=== PATIENT | female | born 2000 | race African-American/Black ===

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

== ENCOUNTER 2019-04-22 11:02 | Emergency (ER) | payer OTHER ==
[2019-04-22 11:18] VITALS: BP 127/73; PULSE 86; TEMP 98.6; BMI 27.4
--- NOTE | 2019-04-22 12:06 | PDOC ---
History of Present Illness - General Chief Complaint: Vaginal Bleeding Stated Complaint: SONOGRAM Time Seen by Provider: 04/22/19 11:33 History Source: Patient Exam Limitations: No Limitations Past History - Past Medical History Allergies/Adverse Reactions: Allergies Allergy/AdvReac Type Severity Reaction Status Date / Time No Known Allergies Allergy Verified 10/27/18 12:41 Home Medications: Ambulatory Orders NK [No Known Home Medication] 04/22/19 COPD: No DVT: No - Surgical History Cholecystectomy: No Neurologic Surgery: No - Reproductive History Is Patient Now?: Yes - Immunization History Immunization Up to Date: Yes - Psycho Social/Smoking Cessation Hx Smoking History: Never smoked Have you smoked in the past 12 months: No Number of Cigarettes Smoked Daily: 0 Cigars Per Day: 0 Hx Alcohol Use: No Drug/Substance Use Hx: No Substance Use Type: None *Physical Exam - Vital Signs Last Vital Signs Temp Pulse Resp BP Pulse Ox 98.6 F 86 16 127/73 100 04/22/19 11:12 04/22/19 11:12 04/22/19 11:12 04/22/19 11:12 04/22/19 11:12 - Physical Exam General Appearance: No: Apparent Distress Respiratory/Chest: positive: Lungs Clear, Normal Breath Sounds. negative: Respiratory Distress Cardiovascular: positive: Regular Rhythm, Regular Rate, S1, S2. negative: Murmur Gastrointestinal/Abdominal: positive: Normal Bowel Sounds, Soft. negative: Tender, Distended, Guarding, Rebound Neurologic: positive: Alert ED Treatment Course - LABORATORY CBC & Chemistry Diagram: 04/22/19 12:05 04/22/19 12:05 - RADIOLOGY Radiology Studies Ordered: Category Date Time Status <14WKS US [US] Stat Ultrasound 04/22/19 11:47 Ordered Medical Decision Making - Medical Decision Making 19-year-old female history of depression, LNMP 03/05, , presents as patient found out she was yesterday and noted to have light bleeding from yesterday. Mentions she also had some brown spotting for 3 days. Went to an OB clinic today and was told that she needed immediate ultrasound but states ultrasound could not be done until 2:45 PM and she did not wait that long so she came to the ER. Denies fever, URI symptoms, shortness of breath, chest pain, abdominal/pelvic pain, nausea vomiting, urinary symptoms. R/O ectopic ; could be miscarriage Plan: Labs, pelvic US 04/22/19 12:04 beta hcg is 796 pelvic US does not show IUP; both ovaries appear unremarkable This could be early or possible miscarriage Advised patient to return in 2 days for repeat blood test 04/22/19 15:46 Discharge - Discharge Information Problems reviewed: Yes Clinical Impression/Diagnosis: Vaginal bleeding during Condition: Stable Disposition: HOME - Admission No - Follow up/Referral Referrals: Nancie Sanchez MD [Primary Care Provider] - - Patient Discharge Instructions Patient Printed Discharge Instructions: DI for Vaginal Bleeding During Additional Instructions: Thank you for choosing [facility]. It was a pleasure taking care of you. Please return in 2 days to the ED for repeat blood test Recommend pelvic rest (including no intercourse) Return to the Emergency Department if your symptoms worsen or persist or have other concerning symptoms. - Post Discharge Activity
[2019-04-22 12:37] LABS: BASO % 0.2 % (0-2.0); EOS % 0.3 % (0-4.5); HEMATOCRIT 40.4 % (32.4-45.2); HEMOGLOBIN 13.7 GM/dL (10.7-15.3); LYMPH % 20.2 % (8-40); MCH 31.4 pg (25.7-33.7); MCHC 33.9 g/dl (32.0-36.0); MEAN CELL VOLUME 92.7 fl (80-96); MEAN PLT VOLUME 9.3 fl (7.5-11.1); MONO % 6.9 % (3.8-10.2); NEUT % 72.4 % (42.8-82.8); PLATELET COUNT 209 K/MM3 (134-434); RBC 4.36 M/mm3 (3.60-5.2); RDW 12.9 % (11.6-15.6); WHITE BLOOD COUNT 8.4 K/mm3 (4.0-10.0)
[2019-04-22 13:04] LABS: BLOOD UREA NITROGEN 8.2 mg/dL (7-18); CALCIUM 8.8 mg/dL (8.5-10.1); CREATININE 0.7 mg/dL (0.55-1.3); POTASSIUM 3.7 mmol/L (3.5-5.1)
[2019-04-22 13:33] LABS: EPI CELLS 3.5 /HPF (0-5/HPF); HYALINE CASTS 10 /lpf (0-8); PH,URINE 5.5 (5.0-8.0); URINE APPEARANCE CLEAR; URINE BACTERIA 39.4 /hpf (NEGATIVE); URINE BILIRUBIN NEGATIVE (NEGATIVE); URINE COLOR YELLOW; URINE GLUCOSE (UA) NEGATIVE (NEGATIVE); URINE KETONE 3+ (NEGATIVE); URINE LEUK ESTERASE NEGATIVE (NEGATIVE); URINE NITRITE NEGATIVE (NEGATIVE); URINE PROTEIN TRACE (NEGATIVE); URINE RBC 3 /hpf (0-4); URINE WBC 3 /hpf (0-5)
== END 2019-04-22 15:58 | disposition home or self-care (01) ==
LOC: JERFT 11:02
DX: O26.891 Other specified pregnancy related conditions, first trimester (principal); Z3A.01 Less than 8 weeks gestation of pregnancy; N93.9 Abnormal uterine and vaginal bleeding, unspecified; F32.9 Major depressive disorder, single episode, unspecified
CPT/HCPCS: 36415; 76817-TC; 80048; 81003; 84702; 85025; 86850; 86900; 86901; 87086; 99284-25

== ENCOUNTER 2019-04-22 20:24 | Emergency (ER) | payer OTHER ==
[2019-04-22 20:35] VITALS: TEMP 97.8; BMI 27.4
[2019-04-22] MEDS ORDERED: MAG HYDROX/AL HYDROX/SIMETH -MYLANTA- ORAL SUSPENSION PO ONE (20:57)
[2019-04-22] MEDS ORDERED: SIMETHICONE 40 MG/0.6 ML BOTTLE PO ONE (20:57)
--- NOTE | 2019-04-22 21:04 | PDOC ---
History of Present Illness - General Chief Complaint: Vaginal Bleeding Stated Complaint: 1 MONTH PREG/BLEEDING Time Seen by Provider: 04/22/19 20:36 - History of Present Illness Initial Comments: The pt is a 19F at approximately 4 wks by LMP who presents for evaluation of abdominal bloating/gas. She reports abdominal 'bubbling' that is mostly suprapubic, intermittent, and not exacerbated or alleviated by anything she can identify. She denies fevers/chills, chest pain, trouble breathing, dysuria, diarrhea, blood in her stool, or changes in sensation. Pt was seen earlier today for vaginal spotting by OBGYN and here. Her TVUS did not show an IUP and her beta-hCG was 700s. She is to return on Thursday for repeat beta, which she states she will do. She has not tried taking anything for her symptoms. She had these symptoms earlier today but did not express them to the providers at that time. Pt reports recent increase in fiber intake but otherwise no changes in diet. Pt is not taking vitamins. 04/22/19 20:57 Past History - Past Medical History Allergies/Adverse Reactions: Allergies Allergy/AdvReac Type Severity Reaction Status Date / Time No Known Allergies Allergy Verified 10/27/18 12:41 Home Medications: Ambulatory Orders Mag Hydrox/Aluminum Hyd/Simeth [Maalox Advanced Suspension] 355 ml PO Q6H PRN #1 bottle 04/22/19 Vit No.138/Folic/Dha [Alive Gummy] 1 each PO DAILY #30 tab.chew 04/22/19 Simethicone Liquid [Mylicon Liquid -] 40 mg PO QID #150 ml 04/22/19 COPD: No DVT: No - Surgical History Cholecystectomy: No Neurologic Surgery: No - Immunization History Immunization Up to Date: Yes - Psycho Social/Smoking Cessation Hx Smoking History: Never smoked Have you smoked in the past 12 months: No Number of Cigarettes Smoked Daily: 0 Cigars Per Day: 0 Hx Alcohol Use: No Drug/Substance Use Hx: No Substance Use Type: None Review of Systems - Review of Systems Able to Perform ROS?: Yes Comments:: GENERAL/CONSTITUTIONAL: No fever or chills. No weakness HEAD, EYES, EARS, NOSE AND THROAT: No change in vision. No change in hearing. No sore throat CARDIOVASCULAR: No chest pain or shortness of breath RESPIRATORY: Denies cough, hemoptysis GASTROINTESTINAL: No nausea, vomiting, diarrhea or constipation GENITOURINARY: No dysuria, frequency, or change in urination MUSCULOSKELETAL: No joint or muscle swelling or pain. No neck or back pain SKIN: No rash NEUROLOGIC: No headache, vertigo, loss of consciousness, or change in strength/sensation ENDOCRINE: No increased thirst. No abnormal weight change HEMATOLOGIC/LYMPHATIC: No anemia, easy bleeding, or history of blood clots ALLERGIC/IMMUNOLOGIC: No hives or skin allergy 04/22/19 21:02 Is the patient limited Slovak proficient: No *Physical Exam - Vital Signs Last Vital Signs Temp Pulse Resp BP Pulse Ox 97.8 F 90 18 127/82 99 04/22/19 20:29 04/22/19 20:29 04/22/19 20:29 04/22/19 20:29 04/22/19 20:29 - Physical Exam GENERAL: Awake, alert, and oriented to person/place/time, in no acute distress HEAD: No signs of trauma, normocephalic, atraumatic EYES: PERRLA, EOMI, sclera anicteric, conjunctiva clear ENT: Hearing grossly normal, nares patent, oropharynx clear without exudates. Moist mucosa LUNGS: No distress, speaks in full sentences, clear to auscultation bilaterally HEART: Regular rate and rhythm, normal S1 and S2, no murmurs appreciated, peripheral pulses normal and equal bilaterally ABDOMEN: Soft, protuberant, NTTP, no rebound/guarding, hyperactive bowel sounds EXTREMITIES: Normal inspection, Normal range of motion, no edema. No clubbing or cyanosis NEUROLOGICAL: Cranial nerves II through XII grossly intact. Normal speech, normal gait, no focal sensorimotor deficits SKIN: Warm, Dry 04/22/19 21:04 Medical Decision Making - Medical Decision Making The pt is a 19F at approximately 4 wks by LMP who presents for evaluation of abdominal bloating/gas. ED Course Zantac, Simethicone, Maalox Rx for prenatals, simethicone, and zantac Plan for D/C w/ obgyn f/u Pt to return Thursday for repeat beta Discharge instructions and return precautions given Patient in agreement and verbalized understanding Dispo: Home 04/22/19 21:09 Discharge - Discharge Information Problems reviewed: Yes Clinical Impression/Diagnosis: Abdominal bloating Condition: Stable Disposition: HOME - Admission No - Additional Discharge Information Prescriptions: Vit No.138/Folic/Dha [Alive Gummy] 1 each PO DAILY #30 tab.chew Mag Hydrox/Aluminum Hyd/Simeth [Maalox Advanced Suspension] 355 ml PO Q6H PRN #1 bottle PRN Reason: Gas Simethicone Liquid [Mylicon Liquid -] 40 mg PO QID #150 ml - Follow up/Referral Referrals: Nancie Sanchez MD [Primary Care Provider] - - Patient Discharge Instructions Patient Printed Discharge Instructions: Gassy Foods Diet, Diet Additional Instructions: You were seen in the Emergency Department for evaluation of abdominal bloating. You were treated with Zantac, Simethicone, and Maalox. Review the handouts provided at discharge. Follow up here Thursday for repeat beta-hCG. Follow up with your OBGYN. Return to the Emergency Department if you develop worsening vaginal bleeding, passage of clots, severe abdominal pain, pain with urination, blood in your stool, vomiting, fevers, chest pain, trouble breathing, worsening symptoms, or any new/concerning symptoms. - Post Discharge Activity Work/Back to School Note: Back to Work
[2019-04-22] MEDS ORDERED: TIZANIDINE HCL 4 MG TABLET PO ONE (21:05)
--- NOTE | 2019-04-22 21:18 | PDOC ---
Attending Attestation - Resident Resident Name: Andrew Perkins - ED Attending Attestation I have performed the following: I have examined & evaluated the patient, The case was reviewed & discussed with the resident, I agree w/resident's findings & plan - HPI HPI: 04/22/19 21:16 19-year-old female history of depression, LNMP 03/05, , lactose intolerance presents as patient found out she was yesterday and came to the ED today for vaginal spotting. presenting today with lower abdominal "gas." she admits to eating Trix cereal with soy milk. no n/v/d, f/c, cp or sob, ann, dizziness, urinary sx. Went to an OB clinic today and had sono done, which showed normal ovaries, no definitive IUP with beta hcg checked this afternoon at 796. she was instructed this could be early or possible miscarriage and should f/u in 2 days for beta check 04/22/19 21:20 - Physicial Exam PE: 04/22/19 21:13 Agree with the resident's HPI and PE as documented in the electronic medical record. NAD, well appearing, EOMI, PERRL, nl conjunctiva, anicteric; neck supple. lungs clear, RRR, abdomen soft nontender. no rebound, guarding. Back nontender. CRUZ x4, no focal neuro deficits. No peripheral edema. normal color for ethnicity, WWP. - Medical Decision Making 04/22/19 21:14 Vital Signs Temp Pulse Resp BP Pulse Ox 97.8 F 90 18 127/82 99 04/22/19 20:29 04/22/19 20:29 04/22/19 20:29 04/22/19 20:29 04/22/19 20:29 Went to an OB clinic today and had sono done, which showed normal ovaries, no definitive IUP with beta hcg checked this afternoon at 796. she was instructed this could be early or possible miscarriage and should f/u in 2 days for beta check abdomen soft and nontender VS reviewed, wnl, reassuring asymptomatic now no VB here, pelvic exam deferred. as pt had full evaluation including labs/txs and sono earlier no rhogam indicated, as rh positive no additional lab testing indicated at this time as <12 hours from previous visit. will give maalox/simethicone, zantac, reassess rx vitamins, diet, tylenol prn for pain. beta hcg check in 2 days, bleeding precautions. Pt to be discharged in stable condition. Patient and family made aware of clinical impression, treatment recommendations and disposition plan, return precautions discussed (including but not limited to new or persistent/worsening symptoms, pain, fevers, or signs of infection, chest pain, respiratory distress, inability to tolerate oral intake, dehydration, syncope, or neurologic changes). Follow up with PMD and/or OB as recommended, follow up information provided, take medications as instructed for duration of time. continue with supportive care, avoid triggers and precipitants. All questions answered to patient's satisfaction and expressed understanding and comfort with this. At the time of discharge, the patient is alert, clinically improved, tolerating po and verbalizes understanding of instructions, satisfied with the care received and felt comfortable with the plan. Patient does not suffer from an acute life- threatening medical condition at this time and is safe for outpatient follow- up. 04/22/19 21:18 04/22/19 21:21 04/22/19 21:22
[2019-04-22] MEDS ORDERED: MAG HYDROX/AL HYDROX/SIMETH 30 ML UNIT-DOSE CUP ONE (21:36)
[2019-04-22 21:45] VITALS: BP 122/75; PULSE 86
== END 2019-04-22 21:43 | disposition home or self-care (01) ==
LOC: JER 20:24
DX: R14.0 Abdominal distension (gaseous) (principal)
CPT/HCPCS: 99283-25

== ENCOUNTER 2019-04-24 22:05 | Emergency (ER) | payer OTHER ==
[2019-04-24 22:08] VITALS: BP 115/78; PULSE 80; TEMP 98.1; BMI 27.4
--- NOTE | 2019-04-24 23:51 | PDOC ---
History of Present Illness - General Chief Complaint: Revisit, Lab Variance Stated Complaint: FOLLOW UP Time Seen by Provider: 04/24/19 23:32 History Source: Patient Exam Limitations: No Limitations - History of Present Illness Initial Comments: 04/24/19 23:46 Patient is a 19-year-old female with no past medical history was here yesterday for vaginal bleeding secondary to threatened . She was seen by AD OPERATIONS SPECIALIST earlier in the day yesterday. She had an ultrasound with did not show an IUP. Beta was 700 on 04/22/2019. She is here today for repeat beta hCG. She notes that her bleeding has slowed. Denies any abdominal pain currently. OBS AD OPERATIONS SPECIALIST: Dr. Farah PMHX: as above PSOCHX: neg etoh, drug, cig ALL: NKDA GENERAL/CONSTITUTIONAL: [No fever or chills. No weakness. No weight change.] HEAD, EYES, EARS, NOSE AND THROAT: [No change in vision. No ear pain or discharge. No sore throat.] CARDIOVASCULAR: [No chest pain or shortness of breath.] RESPIRATORY: [No cough, wheezing, or hemoptysis.] GASTROINTESTINAL: [No nausea, vomiting, diarrhea or constipation. No rectal bleeding.] GENITOURINARY: [No dysuria, frequency, or change in urination.] NEUROLOGIC: [No headache, vertigo, loss of consciousness, or loss of sensation.] HEMATOLOGIC/LYMPHATIC: [No anemia, easy bleeding, or history of blood clots.] GENERAL: [The patient is awake, alert, and fully oriented, in no acute distress.] EYES: [Pupils equal, round and reactive to light, extraocular movements intact, sclera anicteric, conjunctiva clear.] ENT: [Ears normal, Moist mucous membranes.] NECK: [Normal range of motion, no JVD, or masses.] LUNGS: [Breath sounds equal, clear to auscultation bilaterally. No wheezes, and no crackles.] HEART: [Regular rate and rhythm, normal S1 and S2 without murmur, rub.] ABDOMEN: [Soft, nontender, normoactive bowel sounds. No guarding, no rebound. No masses.] EXTREMITIES: [Normal range of motion, no edema. No clubbing or cyanosis. No cords, erythema, or tenderness.] NEUROLOGICAL: [Cranial nerves II through XII grossly intact. Normal speech, normal gait.] SKIN: [Warm, Dry, normal turgor, no rashes or lesions noted.] Past History - Past Medical History Allergies/Adverse Reactions: Allergies Allergy/AdvReac Type Severity Reaction Status Date / Time No Known Allergies Allergy Verified 04/24/19 22:08 Home Medications: Ambulatory Orders Mag Hydrox/Aluminum Hyd/Simeth [Maalox Advanced Suspension] 355 ml PO Q6H PRN #1 bottle 04/22/19 Vit No.138/Folic/Dha [Alive Gummy] 1 each PO DAILY #30 tab.chew 04/22/19 Simethicone Liquid [Mylicon Liquid -] 40 mg PO QID #150 ml 04/22/19 COPD: No DVT: No - Surgical History Cholecystectomy: No Neurologic Surgery: No - Immunization History Immunization Up to Date: Yes - Psycho Social/Smoking Cessation Hx Smoking History: Never smoked Have you smoked in the past 12 months: No Number of Cigarettes Smoked Daily: 0 Cigars Per Day: 0 Hx Alcohol Use: No Drug/Substance Use Hx: No Substance Use Type: None *Physical Exam - Vital Signs Last Vital Signs Temp Pulse Resp BP Pulse Ox 98.1 F 80 18 115/78 100 04/24/19 22:06 04/24/19 22:06 04/24/19 22:06 04/24/19 22:06 04/24/19 22:06 Medical Decision Making - Medical Decision Making Patient is a 19-year-old female with no past medical history was here yesterday for vaginal bleeding secondary to threatened . She was seen by AD OPERATIONS SPECIALIST earlier in the day yesterday. She had an ultrasound with did not show an IUP. Beta was 700 on 04/22/2019. She is here today for repeat beta hCG. She notes that her bleeding has slowed. Denies any abdominal pain currently. Threatened here for repeat hCG beta Labs sent 04/25/19 01:22 Beta hCG is 143 a drop from 700 on 04/22/19 consistent with loss. I discussed the physical exam findings, ancillary test results and final diagnoses with the patient. I answered all of the patient's questions. The patient was satisfied with the care received and felt comfortable with the discharge plan and treatment plan. The Patient agrees to follow up with the primary care physician within 24-72 hours. Discharge - Discharge Information Problems reviewed: Yes Clinical Impression/Diagnosis: Complete Condition: Stable Disposition: HOME - Follow up/Referral - Patient Discharge Instructions Patient Printed Discharge Instructions: DI for Miscarriage Additional Instructions: Your Discharge Instructions: You must call primary care physician within 24 hours to arrange follow-up. Return to the Emergency Department with any new, persistent or worsening symptoms, for fever, chills, SOB, dizziness or any other concerning changes that may occur. Follow-up with your AD OPERATIONS SPECIALIST in 2 to 3 days for further evaluation and treatment. - Post Discharge Activity
== END 2019-04-25 01:33 | disposition home or self-care (01) ==
LOC: JER 22:05
DX: O03.9 Complete or unspecified spontaneous abortion without complication (principal)
CPT/HCPCS: 36415; 84702; 99282-25

== ENCOUNTER 2019-09-21 22:26 | Emergency (ER) | payer OTHER ==
[2019-09-21 22:42] VITALS: BP 113/62; PULSE 72; TEMP 98.5; BMI 26.5
--- NOTE | 2019-09-21 23:18 | PDOC ---
History of Present Illness - General Chief Complaint: ,Possible Stated Complaint: POSSIBLE PREG/NAUSEA Time Seen by Provider: 09/21/19 23:08 History Source: Patient Exam Limitations: No Limitations - History of Present Illness Initial Comments: 09/21/19 23:16 19 year-old female no past medical history G1, P0 presented the ED with a lack of menstrual period since July 16. Patient states that in between then and now she had some spotting but no gross bleeding or menstruation. Patient states that she thinks she may be she took a home test which was negative however she came to the ED just to be sure. Contrary to triage patient denies nausea or abdominal pain. Patient has no other symptoms at this time but does however want to be tested for STDs. Pt otherwise denies: fevers, chills, syncope, lightheadedness, dizziness, headaches, neck pain, chest pain, shortness of breath, palpitations, back pain, abdominal pain, nausea, vomiting, diarrhea, constipation. Past History - Medical History Allergies/Adverse Reactions: Allergies Allergy/AdvReac Type Severity Reaction Status Date / Time No Known Allergies Allergy Verified 04/24/19 22:08 Home Medications: Ambulatory Orders Mag Hydrox/Aluminum Hyd/Simeth [Maalox Advanced Suspension] 355 ml PO Q6H PRN #1 bottle 04/22/19 Vit No.138/Folic/Dha [Alive Gummy] 1 each PO DAILY #30 tab.chew 04/22/19 Simethicone Liquid [Mylicon Liquid -] 40 mg PO QID #150 ml 04/22/19 COPD: No DVT: No - Surgical History Cholecystectomy: No Neurologic Surgery: No - Reproductive History Is Patient Now?: No - Immunization History Immunization Up to Date: Yes - Psycho-Social/Smoking History Smoking History: Never smoked Have you smoked in the past 12 months: No Number of Cigarettes Smoked Daily: 0 Cigars Per Day: 0 - Substance Abuse Hx (Audit-C & DAST Scrn) How often the patient has a drink containing alcohol: Never Score: In Men: 4 or > Positive; In Women: 3 or > Positive: 0 Screen Result (Pos requires Nsg. Audit-10AR): Negative In the last yr the pt used illegal drug/Rx for NonMed reason: No Score: Yes response is considered Positive: 0 Screen Result (Positive result requires Nsg. DAST-10): Negative *Physical Exam - Vital Signs Last Vital Signs Temp Pulse Resp BP Pulse Ox 98.5 F 72 19 113/62 100 09/21/19 22:39 09/21/19 22:39 09/21/19 22:39 09/21/19 22:39 09/21/19 22:39 - Physical Exam 09/21/19 23:17 Gen: AAOx 3, no acute distress, comfortable, no signs of respiratory distress HENT: atraumatic, normocephalic with no laceration or contusion. Nasal mucosa without erythema. Oropharynx without erythema or exudates. Mucous membranes moist. EYES: PERRL, EOM intact, conjunctiva pink NECK: supple; trachea midline; no JVD, no lymphadenopathy, or thyromegaly CV: RRR no murmurs, gallops, or rubs. CHEST: CTA b/l no wheezing, rales or rhonchi ABD: +BS/ND. no TTP; soft, no rebound, no guarding Pelvic: deferred EXTREMITY: no cyanosis or erythema. 2+ dorsalis pedis, posterior tibial, and radial pulse. No pedal edema; no calf swelling or tenderness SKIN: no rash, warm and dry, no diaphoresis HEME: no purpura or ecchymosis NEURO: normal speech, CN II-XII intact, sensation intact, normal gait, no cerebellar deficits MS: 5/5 strength in all extremities, FROM intact in all extremities. Medical Decision Making - Medical Decision Making 09/21/19 23:17 19-year-old female no past medical history concern for Vital signs stable We will obtain UA UC U gonorrhea chlamydia Will reassess based on results UA and urpeg negative Pt to follow up with HELMINTHOLOGY TEACHER without fail Pt appears well and is safe and stable for discharge Strict return precautions given Supportive care instructions explained and given to pt. Reasons to return emergently to ER explained and given. Importance of follow up with PMD and other specialists as indicated stressed to pt. Pt verbalized understanding of instructions. Pt to follow up with PMD in 2 days. Discharge - Discharge Information Problems reviewed: Yes Clinical Impression/Diagnosis: Lack of menses Condition: Stable Disposition: HOME - Follow up/Referral Referrals: Maame Valdez MD [Staff Physician] - - Patient Discharge Instructions Patient Printed Discharge Instructions: DI for Amenorrhea Additional Instructions: PLEASE FOLLOW UP WITH HAND FABRIC CUTTER - Post Discharge Activity
--- NOTE | 2019-09-21 23:29 | PDOC ---
*Physical Exam - Vital Signs Last Vital Signs Temp Pulse Resp BP Pulse Ox 98.5 F 72 19 113/62 100 09/21/19 22:39 09/21/19 22:39 09/21/19 22:39 09/21/19 22:39 09/21/19 22:39 Medical Decision Making - Medical Decision Making 09/21/19 23:28 Patient seen by the advanced practice provider under my supervision. Ancillary testing reviewed as necessary. I agree with plan as outlined by the advanced practice provider. Discharge - Discharge Information Problems reviewed: Yes Clinical Impression/Diagnosis: Lack of menses Condition: Stable Disposition: HOME - Follow up/Referral Referrals: Maame Valdez MD [Staff Physician] - - Patient Discharge Instructions Patient Printed Discharge Instructions: DI for Amenorrhea Additional Instructions: PLEASE FOLLOW UP WITH AUTOMOTIVE SERVICE CONSULTANT - Post Discharge Activity
[2019-09-21 23:49] LABS: PH,URINE 6.5 (5.0-8.0); URINE APPEARANCE CLEAR; URINE BILIRUBIN NEGATIVE (NEGATIVE); URINE COLOR YELLOW; URINE GLUCOSE (UA) NEGATIVE (NEGATIVE); URINE KETONE NEGATIVE (NEGATIVE); URINE LEUK ESTERASE NEGATIVE (NEGATIVE); URINE NITRITE NEGATIVE (NEGATIVE); URINE PROTEIN NEGATIVE (NEGATIVE)
[2019-09-21 23:51] LABS: HCG,QUALITATIVE URINE Negative
== END 2019-09-22 00:10 | disposition home or self-care (01) ==
LOC: JER 22:26
DX: N91.2 Amenorrhea, unspecified (principal)
CPT/HCPCS: 36415; 81003; 84703; 87086; 87491; 87591; 99283-25

== ENCOUNTER 2019-11-06 22:17 | Emergency (ER) | payer OTHER ==
[2019-11-06 22:28] VITALS: BP 129/72; PULSE 93; TEMP 98.8; BMI 26.2
--- OUTSIDE RECORDS SUMMARY | 2019-11-06 22:33 | XMS ---
:2000 Author Organization [facility] Care Team Providers Name Role Phone SIDNEY CADE, NELLI Unavailable SIDNEY CADE, LEAY Unavailable SIDNEY CADE, RINY Unavailable SIDNEY CADE, RINY Unavailable Elder Aragon Unavailable [email or web address] Elder Aragon Unavailable [email or web address] Elder Aragon Unavailable [email or web address], [email or web address] Unavailable Unavailable MARY KAYE MD Unavailable VARGAS CADE, MARY Unavailable BEN REVELESW, CEASAR Unavailable [phone] SHELIA CADE, PEPE Unavailable SHELIA CADE, PEPE Unavailable SHELIA CADE, PEPE Unavailable SHELIA CADE, PEPE Unavailable ASAMENEW MD, PEPE Unavailable OYEKOLA COMPACTING MACHINE OPERATOR/TENDER, MOBOLAJI Unavailable OYEKOLA COMPACTING MACHINE OPERATOR/TENDER, MOBOLAJI Unavailable OYEKOLA COMPACTING MACHINE OPERATOR/TENDER, MOBOLAJI Unavailable OYEKOLA COMPACTING MACHINE OPERATOR/TENDER, MOBOLAJI Unavailable AGYEPONG COMPACTING MACHINE OPERATOR/TENDER, ELY Unavailable AGYEPONG COMPACTING MACHINE OPERATOR/TENDER, ELY Unavailable AHMAD MD, CHUN Unavailable AHMAD MD, CHUN Unavailable AHMAD MD, CHUN Unavailable ARTEMIO CNM, BLUE Unavailable ARTEMIO CNM, BLUE Unavailable 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, ARLETH Unavailable 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, ARLETH Unavailable 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, ARLETH Unavailable BRADY JAUREGUI MD Unavailable Unavailable QUINTOSBRADY MD Unavailable Unavailable QUINTOS, BRADY CADE Unavailable Unavailable QUINTOS, BRADY CADE Unavailable Unavailable QUINTOS, BRADY CADE Unavailable Unavailable QUINTOS, BRADY CADE Unavailable Unavailable QUINTOS, BRADY CADE Unavailable Unavailable LEAVELLE PA, COLEMAN Unavailable LEAVELLE PA, COLEMAN Unavailable LEAVELLE PA, COLEMAN Unavailable LEAVELLE PA, COLEMAN Unavailable CORBIN CADE, MARTA Unavailable ALEXANDER , MARTA Unavailable ALEXANDER , MARTA Unavailable LAMINE LEGGETT MD Unavailable [phone] LAMINE LEGGETT MD Unavailable [phone] RICHIE PONCE MD Unavailable DONNA ROSALES MD Unavailable Unavailable LADY AZAR Unavailable Re-disclosure Warning The records that you are about to access may contain information from federally- assisted alcohol or drug abuse programs. If such information is present, then the following federally mandated warning applies: This information has been disclosed to you from records protected by federal confidentiality rules (42 CFR part 2). The federal rules prohibit you from making any further disclosure of this information unless further disclosure is expressly permitted by the written consent of the person to whom it pertains or as otherwise permitted by 42 CFR part 2. A general authorization for the release of medical or other information is NOT sufficient for this purpose. The Federal rules restrict any use of the information to criminally investigate or prosecute any alcohol or drug abuse patient.The records that you are about to access may contain highly sensitive health information, the redisclosure of which is protected by Article 27-F of the [facility] Public Health law. If you continue you may haveaccess to information: Regarding HIV / AIDS; Provided by facilities licensed or operated by the [facility] Office of Mental Health; or Provided by the [facility] Office for People With Developmental Disabilities. If such information is present, then the following [facility] mandated warning applies: This information has been disclosed to you from confidential records which are protected by state law. State law prohibits you from making any further disclosure of this information without the specific written consent of the person to whom it pertains, or as otherwise permitted by law. Any unauthorized further disclosure in violation of state law may result in a fine or fdc sentence or both. A general authorization for the release of medical or other information is NOT sufficient authorization for further disclosure. Allergies and Adverse Reactions Type Description Substance Reaction Status Data Source(s ) Allergy to No Known Allergies No known GREENW AY ([place] substance allergies [facility] ) Allergy to No Known Allergies No known GREENW AY ([place] substance allergies [facility] ) Allergy to No Known Allergies No known GREENW AY (Mount substance allergies [facility] ) Allergy to No Known Allergies No known GREENW AY (Mount substance allergies [facility] ) Allergy to No Known Allergies No known GREENW AY ([facility] substance allergies [facility] ) Allergy to No Known Allergies No known GREENW AY (Mount substance allergies [facility] ) Allergy to No Known Allergies No known GREENW AY (Mount substance allergies [facility] ) Allergy to No Known Allergies No known GREENW AY ([place] substance allergies [facility] ) Allergy to No Known Allergies No known GREENW AY (Mount substance allergies [facility] ) Allergy to No Known Allergies No known GREENW AY ([place] substance allergies [facility] ([facility] ) Allergy to No Known Allergies No known GREENW AY ([place] substance allergies [facility] ) Allergy to No Known Allergies No known GREENW AY (Mount substance allergies [facility] ([facility] ) Encounters Encounter Providers Location Date Indications Data Source(s ) Outpatient Attender: MHAW9 09/17/2019 GSI ([facility] 12:56:20 PM [facility] EDT [facility]) Patient admitted. Outpatient Attender: MHAW9 [facility] 05/06/2019 07:06:58 AM [facility] ([facility] EDT [facility]) Patient admitted. Unlisted evaluation 01/25/2019 05:35:00 NETSMART (Mental Health and management PM [facility]) Outpatient Attender: MHAW9 01/11/2019 03:10:51 [facility] ([facility] beds [facility] Patient admitted. Outpatient Attender: MHAW9 [facility] 01/04/2019 10:29:43 AM [facility] ([facility]) Patient admitted. Outpatient 09/13/2018 01:25:29 PM EDT [facility] ([facility]) Patient admitted. Outpatient [place] 08/12/2018 eCW3 ([facility] 12:00:00 AM [place] [id number] EDT - Care) 08/12/2018 12:00:00 AM EDT Outpatient<td Attender: Kendra 06/24/2018 OverweightLow GLEN ([facility] ID="encounterT [facility] 11:00:00 AM Back Pain Anthony ypeDescription [facility] EDT - Neigh borhood ID0">WALKINS</ 06/24/[address]) td><td>[facility] 11:21:55 AM [facility] EDT COMPACTING MACHINE OPERATOR/TENDER</td><td>[facility]</td><td >06/24/2018</t d><td><content ID="encounterD iagnosisID0-0" >Low Back Pain</content> , <content ID="encounterD iagnosisID0-1" >Overweight</c ontent></td> Overweight Low Back Pain Outpatient<td Attender: Kendra 06/22/2018 OverweightBackache GRE ENWAY ID="encounterTypeDescriptionID1">[place]</td><td>[facility] 01:30:00 PM LowerOverweightBackache (Mira Cruz [facility]</td><td>[facility] DT - [facility]</td><td>06/22/2018</td><td><content COMPACTING MACHINE OPERATOR/TENDER Center 08/2018 Health ID="encounterDiagnosisID1-0">Backache Lower</content>, 01:31:59 PM Center) <content EDT ID="encounterDiagnosisID1-1">Overweight</content></td> Overweight Backache Lower Overweight Backache Lower Outpatient [place] 05/21/2018 eCW3 ([facility] 12:00:[address] [facility] EDT - Care) Clinic A28 05/21/2018 12:00:00 AM EDT Unlisted 05/17/2018 NETSMART evaluation 07:11:00 PM (Mental and EDT Health management Association service [facility]) Outpatient<t Attender: Kendra 05/07/[address] [facility] 01:30:00 PM ExaminationOverweightRou umberto (Mira Cruz ID="[facility] - ExaminationOverweightRo utine [facility] rTypeDescrip COMPACTING MACHINE OPERATOR/TENDER Center 05/07/2018 Examination Health tionID2">WAL 02:17:17 PM Center) KINS</td><td EDT >[facility]FF[facility]</td><td> [facility]</td>< td> 9</td><td><c ontent ID="encounte rDiagnosisID 2-0">Routine Examination< /content>, <content ID="encounte rDiagnosisID 2-1">Overwei ght</content ></td> Overweight Routine Examination Overweight Routine Examination Overweight Routine Examination Outpatient<td Attender: 05/03/2018 GLEN ID="encounterTypeDescriptionID3">*Sandra RAMAN 04:26:00 P M (Jermyn Show*</td><td>LAMINE LEGGETT EDT - [facility] MD</td><td> MD 05/03/2018 Health </td><td>05/03/2018</td><td></td> 11:59:00 PM Center) EDT Outpatient<td Attender: [facility] 04/27/2018 Nicole CARROLL ID="encounterTypeDescriptionID4">TIMMY Cruz 01:45:00 PM ry (Jermyn CE VISIT</td><td>CEASAR Dill EDT - Insom [facility]</td><td>[facility] CAMPUS COORDINATOR orhood 9 niaPr Health [facility] 11:59:00 PM imary Cent er) Center</td><td>04/27/2018</td><td><co Center EDT Insom ntent niaPr ID="encounterDiagnosisID4-0">Adjustme imary nt Disorder</content>, <content Inso m ID="encounterDiagnosisID4-1">Primary niaPr Insomnia</content></td> imary Insom niaPr imary Insom niaAd justm ent Disor derAd justm ent Disor derAd justm ent Disor derAd justm ent Disor derAd justm ent Disor catalino Primary Insomnia Primary Insomnia Primary Insomnia Primary Insomnia Primary Insomnia Adjustment Disorder Adjustment Disorder Adjustment Disorder Adjustment Disorder Adjustment Disorder Outpatient<td Attender: Mira Cruz 04/21/2018 GLEN ID="encounterTypeDescriptionID5">PATIENT LADY Neighborhood 12:3 2:00 PM (Jermyn ADVOCACY</td><td>[facility] EST Neighborhood ASKEW</td><td>[facility] 2018 Health Health 11:59:00 PM Center) Center</td><td>04/21/2018</td><td></td> EST Outpatient [place] 04/16/2018 eCW3 ([facility] 12:00:00 AM [facility] A28 EST - Care) 04/16/2018 12:00:00 AM EST Outpatient<td Attender: Mira Cruz 03/18/2018 GLEN ID="encounterTypeDescriptionID6">PATIENT [facility] 04:5 9:00 PM (Jermyn [facility]</td><td>[facility] EST Neighborhood [facility]</td><td>[facility] 2018 Health Health 11:59:00 PM Center) Center</td><td>03/18/2018</td><td></td> EST Outpatient<td Attender: Miar Cruz 03/10/2018 GLEN ID="encounterTypeDescriptionID7">PATIENT LADY Neighborhood 01:2 1:00 PM (Jermyn [facility]</td><td>[facility] EST [facility]</td><td>[facility] 2018 Health Health 11:59:00 PM Center) Center</td><td>03/10/2018</td><td></td> EST Outpatient<td Attender: Mira Cruz 02/08/2018 A GLEN ID="encounterTypeDescriptionID8">CONTINUI [facility] 03: 45:00 PM s (Jermyn NG THERAPY</td><td[facility] Neighborhood [facility]</td><td>Mira Cruz [facility] 02/08/2018 [facility] C[facility] CO[facility] 11:59:00 PM s Cent [facility]</td><td>02/08/2018</td><td><conten EST s t ID="encounterDiagnosisID8-0">Adjustment m Disorder</content>, <content e ID="encounterDiagnosisID8-1">Assessment n [use For S.o.a.p. Note Free t Text]</content></td> [ u s e F o r S . o . a . p . N o t e F r e e T e x t ] A s s e s s m e n t [ u s e F o r S . o . a . p . N o t e F r e e T e x t ] A s s e s s m e n t [ u s e F o r S . o . a . p . N o t e F r e e T e x t ] A s s e s s m e n t [ u s e F o r S . o . a . p . N o t e F r e e T e x t ] A s s e s s m e n t [ u s e F o r S . o . a . p . N o t e F r e e T e x t ] A s s e s s m e n t [ u s e F o r S . o . a . p . N o t e F r e e T e x t ] A s s e s s m e n t [ u s e F o r S . o . a . p . N o t e F r e e T e x t ] A s s e s s m e n t [ u s e F o r S . o . a . p . N o t e F r e e T e x t ] A s s e s s m e n t [ u s e F o r S . o . a . p . N o t e F r e e T e x t ] A d j u s t m e n t D i s o r d e r A d j u s t m e n t D i s o r d e r A d j u s t m e n t D i s o r d e r A d j u s t m e n t D i s o r d e r A d j u s t m e n t D i s o r d e r A d j u s t m e n t D i s o r d e r A d j u s t m e n t D i s o r d e r A d j u s t m e n t D i s o r d e r A d j u s t m e n t D i s o r d e r Assessment [use For S.o.a.p. Note Free T ext] Assessment [use For S.o.a.p. Note Free T ext] Assessment [use For S.o.a.p. Note Free T ext] Assessment [use For S.o.a.p. Note Free T ext] Assessment [use For S.o.a.p. Note Free T ext] Assessment [use For S.o.a.p. Note Free T ext] Assessment [use For S.o.a.p. Note Free T ext] Assessment [use For S.o.a.p. Note Free T ext] Assessment [use For S.o.a.p. Note Free T ext] Adjustment Disorder Adjustment Disorder Adjustment Disorder Adjustment Disorder Adjustment Disorder Adjustment Disorder Adjustment Disorder Adjustment Disorder Adjustment Disorder Outpatient<td Attender: Mira Cruz 01/29/2018 GLEN ID="encounterTypeDescriptionID9">[facility] 01:1 3:00 PM (Jermyn ADVOCACY</td><td>[facility]</td><td>[facility] 2017 [facility] 11:59:00 PM [place]) Center</td><td>01/29/2018</td><td></td> EST Outpatient<td Attender: Mira Cruz 01/08/2018 A GLEN ID="kz[id number]">CONTINU [facility] 03: 15:00 PM d (Jermyn ING THERAPY</td><td>[facility] CAMPUS COORDINATOR</td><td>Jermyn ALAMMARI 01/08/2018 [facility] CAMPUS COORDINATOR 11:59:00 PM s Cent er) Center</td><td>01/08/2018</td><td><conten EST t t m ID="cacnexfyhCjiavestpDH26-5">Adjustment e Disorder</content></td> n t D i s o r d e r A d j u s t m e n t D i s o r d e r A d j u s t m e n t D i s o r d e r A d j u s t m e n t D i s o r d e r A d j u s t m e n t D i s o r d e r A d j u s t m e n t D i s o r d e r A d j u s t m e n t D i s o r d e r A d j u s t m e n t D i s o r d e r A d j u s t m e n t D i s o r d e r A d j u s t m e n t D i s o r d e r A d j u s t m e n t D i s o r d e r Adjustment Disorder Adjustment Disorder Adjustment Disorder Adjustment Disorder Adjustment Disorder Adjustment Disorder Adjustment Disorder Adjustment Disorder Adjustment Disorder Adjustment Disorder Adjustment Disorder Outpatient<td Attender: Mira Cruz 01/05/2018 GLEN ID="crffxerowImgtLohqaabecepAM11">PATIENT LADY [facility] 11: 16:00 AM (Mira Cruz ADVOCACY</td><td>LADY ASKEW</td><td>[facility] E [facility] 01/05/2018 Health Center</td><td>01/05/2018</td><td></td> 11:59:0 0 PM Center) EST Outpatient<td Attender: Mira Cruz 12/25/2017 A GLEN ID="jm[id number]">CONTINUI CEASAR [facility] 03 :30:00 PM d (Mira Cruz NG THERAPY</td><td>[facility] EST - j [facility] CAMPUS COORDINATOR</td><td>Jermyn ALAMMARI 12/25/2017 [facility] CAMPUS COORDINATOR 11:59:00 PM s Cent er) Center</td><td>12/25/2017</td><td><content EST t ID="[id number]">Adjustment m Disorder</content></td> e n t D i s o r d e r A d j u s t m e n t D i s o r d e r A d j u s t m e n t D i s o r d e r A d j u s t m e n t D i s o r d e r A d j u s t m e n t D i s o r d e r A d j u s t m e n t D i s o r d e r A d j u s t m e n t D i s o r d e r A d j u s t m e n t D i s o r d e r A d j u s t m e n t D i s o r d e r A d j u s t m e n t D i s o r d e r A d j u s t m e n t D i s o r d e r A d j u s t m e n t D i s o r d e r Adjustment Disorder Adjustment Disorder Adjustment Disorder Adjustment Disorder Adjustment Disorder Adjustment Disorder Adjustment Disorder Adjustment Disorder Adjustment Disorder Adjustment Disorder Adjustment Disorder Adjustment Disorder Outpatient<td Attender: Jermyn 12/24/2017 JACKSON ID="nm[id number]">PATIENT [facility] 01: 06:00 PM ([facility]</td><td>LADY ASKEW</td><td>[facility] E [facility] 12/24/2017 Health Center</td><td>12/24/2017</td><td></td> 11:59:0 0 PM Center) EST Outpatient<td Attender: Jermyn 12/23/2017 JACKSON ID="km[id number]">PATIENT [facility] 01: 02:00 PM ([facility]</td><td>LADY ASKEW</td><td>[facility] E [facility] 12/23/2017 Health Center</td><td>12/23/2017</td><td></td> 11:59:0 0 PM Center) EST Outpatient<td Attender: Mira Cruz 12/10/2017 Maranda CARROLL ID="dg[id number]">[facility] :30[facility]00 PM d (Jermyn NG THERAPY</td><td>[facility] EDT - j [facility] COORD[facility]</td><td>Jermyn ALAMMARI 12/10/2017 [facility] CAMPUS COORDINATOR 11:59:00 PM s Cent er) Center</td><td>12/10/2017</td><td><content EDT t ID="[id number]">Adjustment m Disorder</content></td> e n t D i s o r d e r A d j u s t m e n t D i s o r d e r A d j u s t m e n t D i s o r d e r A d j u s t m e n t D i s o r d e r A d j u s t m e n t D i s o r d e r A d j u s t m e n t D i s o r d e r A d j u s t m e n t D i s o r d e r A d j u s t m e n t D i s o r d e r A d j u s t m e n t D i s o r d e r A d j u s t m e n t D i s o r d e r A d j u s t m e n t D i s o r d e r A d j u s t m e n t D i s o r d e r Adjustment Disorder Adjustment Disorder Adjustment Disorder Adjustment Disorder Adjustment Disorder Adjustment Disorder Adjustment Disorder Adjustment Disorder Adjustment Disorder Adjustment Disorder Adjustment Disorder Adjustment Disorder Outpatient<td Attender: Mira Cruz 11/27/2017 J Luis Ballesteros ID="tx[id number]">[facility] 09:00:00 AM DisorderPigmentation (Jermyn VISIT</td><td>MARY KAYE MD Health Center [facility]</td><td>[facility] 01/2018 DisorderPigmentation Health Center</td><td>11/27/2017</td><td><content 09:2 4:03 AM DisorderPigmentation Center) ID="[id number]">Pigmentation EDT DisorderPigmentation Disorder</content></td> DisorderPigm entation DisorderPigmentation DisorderPigmentation DisorderPigmentation DisorderPigmentation DisorderPigmentation Disorder Pigmentation Disorder Pigmentation Disorder Pigmentation Disorder Pigmentation Disorder Pigmentation Disorder Pigmentation Disorder Pigmentation Disorder Pigmentation Disorder Pigmentation Disorder Pigmentation Disorder Pigmentation Disorder Pigmentation Disorder Outpatient<td Attender: Jermyn 11/26/2017 Pigmentation GREEN[place] Y ID="[id number]">OFFICE [facility] 02:30:00 PM DisorderPigmentation (Jermyn VISIT</td><td[facility] - [facility]</td><td>[facility] 12/2017 DisorderPigmentation Health Center</td><td>11/26/2017</td><td><content 04:0 8:42 PM DisorderPigmentation Center) ID="[id number]">Pigmentation EDT DisorderPigmentation Disorder</content></td> DisorderPigm entation DisorderPigmentation DisorderPigmentation DisorderPigmentation DisorderPigmentation DisorderPigmentation Disorder Pigmentation Disorder Pigmentation Disorder Pigmentation Disorder Pigmentation Disorder Pigmentation Disorder Pigmentation Disorder Pigmentation Disorder Pigmentation Disorder Pigmentation Disorder Pigmentation Disorder Pigmentation Disorder Pigmentation Disorder Outpatient<td Attender: Jermyn 11/26/2017 Adjustment GLEN ID="xp[id number]">CONTINUING CEASAR cannon 01:30:00 PM DisorderAdjustment (Jermyn THERAPY</td><td>[facility] ter EDT - DisorderAdjustment [facility] CAMPUS COORDINATOR</td><td>[facility] 11/26/2017 DisorderAdjustment Health Center</td><td>11/26/2017</td><td><content CAMPUS COORDINATOR 11:5 9:00 PM DisorderAdjustment Center) ID="[id number]">Adjustment EDT DisorderAdjustment Disorder</content></td> DisorderAdju stment DisorderAdjustment DisorderAdjustment DisorderAdjustment DisorderAdjustment DisorderAdjustment Disorder Adjustment Disorder Adjustment Disorder Adjustment Disorder Adjustment Disorder Adjustment Disorder Adjustment Disorder Adjustment Disorder Adjustment Disorder Adjustment Disorder Adjustment Disorder Adjustment Disorder Adjustment Disorder Outpatient<td Attender: Jermyn 09/24/2017 JACKSON ID="ro[id number]">*No BRADY Abbott 04:50:0 0 PM (Jermyn Show*</td><td>BRADY JAUREGUI MD Health Center EDT - Neighborhood </td><td>Mira Cruz Scar 09/24/2017 Health Health 11:59:00 PM Center) Center</td><td>09/24/2017</td><td></td> EDT Outpatient<td Attender: Jermyn 07/20/2017 JACKSON ID="dg[id number]">*No COLEMAN Abbott 05:19:0 0 PM (Jermyn Show*</td><td>[facility] EDT - Neighborhood PA</td><td>Jermyn Scar PA 07/20/2017 Health Health 11:59:00 PM Center) Center</td><td>07/20/2017</td><td></td> EDT Outpatient<td Attender: Jermyn 05/21/2017 JACKSON ID="[id number]">*No MARTA Abbott 06:42:0 0 PM (Jermyn Show*</td><td>MARTA--- CORBIN ALANIZ MD Health Center EDT - Neighborhood </td><td>Mira Cruz Scar 05/21/2017 Health Health 11:59:00 PM Center) Center</td><td>05/21/2017</td><td></td> EDT Outpatient<td Attender: Jermyn 05/01/2017 JACKSON ID="af[id number]">*No MARTA Abbott 04:39:0 0 PM (Jermyn Show*</td><td>MARTA--Darci ALANIZ MD Health Center EDT - Neighborhood </td><td>Jermyn Scar 05/01/2017 Health Health 11:59:00 PM Center) Center</td><td>05/01/2017</td><td></td> EDT Outpatient<td Attender: Mira Cruz 05/01/2017 R GLEN ID="rx[id number]">[facility] 02:4 5:00 PM e (Jermyn UING THERAPY</td><td>[facility] EDT - a [facility] CAMPUS COORDINATOR</td><td>Jermyn ALAMMARI 05/01/2017 [facility] CAMPUS COORDINATOR 11:59:00 PM t Cent er) [place]</td><td>05/01/2017</td><td><luis EDT i nt v ID="[id number]">Depression e </content>, <content A ID="ggulwsbhjEuoyzltmoAZ06-4">Post-traum t atic Stress Disorder</content>, <content t ID="pcarprqjtHruzhekmqUP14-4">Reactive a Attachment Disorder</content></td> c h m e n t D i s o r d e r P o s t - t r a u m a t i c S t r e s s D i s o r d e r D e p r e s s i o n R e a c t i v e A t t a c h m e n t D i s o r d e r P o s t - t r a u m a t i c S t r e s s D i s o r d e r D e p r e s s i o n R e a c t i v e A t t a c h m e n t D i s o r d e r P o s t - t r a u m a t i c S t r e s s D i s o r d e r D e p r e s s i o n R e a c t i v e A t t a c h m e n t D i s o r d e r P o s t - t r a u m a t i c S t r e s s D i s o r d e r D e p r e s s i o n R e a c t i v e A t t a c h m e n t D i s o r d e r P o s t - t r a u m a t i c S t r e s s D i s o r d e r D e p r e s s i o n R e a c t i v e A t t a c h m e n t D i s o r d e r P o s t - t r a u m a t i c S t r e s s D i s o r d e r D e p r e s s i o n R e a c t i v e A t t a c h m e n t D i s o r d e r P o s t - t r a u m a t i c S t r e s s D i s o r d e r D e p r e s s i o n R e a c t i v e A t t a c h m e n t D i s o r d e r P o s t - t r a u m a t i c S t r e s s D i s o r d e r D e p r e s s i o n R e a c t i v e A t t a c h m e n t D i s o r d e r P o s t - t r a u m a t i c S t r e s s D i s o r d e r D e p r e s s i o n R e a c t i v e A t t a c h m e n t D i s o r d e r P o s t - t r a u m a t i c S t r e s s D i s o r d e r D e p r e s s i o n R e a c t i v e A t t a c h m e n t D i s o r d e r P o s t - t r a u m a t i c S t r e s s D i s o r d e r D e p r e s s i o n R e a c t i v e A t t a c h m e n t D i s o r d e r P o s t - t r a u m a t i c S t r e s s D i s o r d e r D e p r e s s i o n Reactive Attachment Disorder Post-traumatic Stress Disorder Depression Reactive Attachment Disorder Post-traumatic Stress Disorder Depression Reactive Attachment Disorder Post-traumatic Stress Disorder Depression Reactive Attachment Disorder Post-traumatic Stress Disorder Depression Reactive Attachment Disorder Post-traumatic Stress Disorder Depression Reactive Attachment Disorder Post-traumatic Stress Disorder Depression Reactive Attachment Disorder Post-traumatic Stress Disorder Depression Reactive Attachment Disorder Post-traumatic Stress Disorder Depression Reactive Attachment Disorder Post-traumatic Stress Disorder Depression Reactive Attachment Disorder Post-traumatic Stress Disorder Depression Reactive Attachment Disorder Post-traumatic Stress Disorder Depression Reactive Attachment Disorder Post-traumatic Stress Disorder Depression Outpatient<td Attender: 04/03/2017 Assessment [use [facility] ID="[id number]">[Patient COLEMAN 02:4 1:00 PM For S.o.a.p. (Jermyn Encounter]</td><td>COLEMAN MCKEON</td><td> YSABEL EST - Note Free Neighborhood PA 04/03/2017 Text]Assessment Health </td><td>04/03/2017</td><td><content 11:59:00 P M [use For [place]) ID="[id number]">Assessment EST S.o.a.p. Note [use For S.o.a.p. Note Free Free Text]</content></td> Text]Assessment [use For S.o.a.p. Note Free Text]Assessment [use For S.o.a.p. Note Free Text]Assessment [use For S.o.a.p. Note Free Text]Assessment [use For S.o.a.p. Note Free Text]Assessment [use For S.o.a.p. Note Free Text]Assessment [use For S.o.a.p. Note Free Text]Assessment [use For S.o.a.p. Note Free Text]Assessment [use For S.o.a.p. Note Free Text]Assessment [use For S.o.a.p. Note Free Text]Assessment [use For S.o.a.p. Note Free Text] Assessment [use For S.o.a.p. Note Free T ext] Assessment [use For S.o.a.p. Note Free T ext] Assessment [use For S.o.a.p. Note Free T ext] Assessment [use For S.o.a.p. Note Free T ext] Assessment [use For S.o.a.p. Note Free T ext] Assessment [use For S.o.a.p. Note Free T ext] Assessment [use For S.o.a.p. Note Free T ext] Assessment [use For S.o.a.p. Note Free T ext] Assessment [use For S.o.a.p. Note Free T ext] Assessment [use For S.o.a.p. Note Free T ext] Assessment [use For S.o.a.p. Note Free T ext] Assessment [use For S.o.a.p. Note Free T ext] Outpatient<td Attender: 04/02/2017 GLEN ID="[id number]">*OUTREACH*</td><td>CEASAR YARELY JOEL 11:30:00 AM ([facility]</td><td> [facility] </td><td>04/02/2017</td><td></td> [facility] 04/02/2017 Health CAMPUS COORDINATOR 11:59:00 PM Center) EST Outpatient<td ID="[id number]">CONTINUING Atten catalino: M 03/27/2017 R [facility] THERAPY</td><td>CEASAR mcnamara 04: 15:00 PM e ([facility]</td><td>[facility] u E ST - a [facility]</td><td>03/27/2017</td><td><content ALAMMARI n 10/2017 c Health ID="[id number]">Post-traumatic Stress CAMPUS COORDINATOR t 11:59:00 PM t Center) Disorder</content>, <content V EST i ID="[id number]">Reactive Attachment e v Disorder</content></td> r e n A o t n t N a e c i h g m h e b n o t r D h i o s o o d r H d e e a r l P t o h s C t e - n t t r e a r u m a t i c S t r e s s D i s o r d e r R e a c t i v e A t t a c h m e n t D i s o r d e r P o s t - t r a u m a t i c S t r e s s D i s o r d e r R e a c t i v e A t t a c h m e n t D i s o r d e r P o s t - t r a u m a t i c S t r e s s D i s o r d e r R e a c t i v e A t t a c h m e n t D i s o r d e r P o s t - t r a u m a t i c S t r e s s D i s o r d e r R e a c t i v e A t t a c h m e n t D i s o r d e r P o s t - t r a u m a t i c S t r e s s D i s o r d e r R e a c t i v e A t t a c h m e n t D i s o r d e r P o s t - t r a u m a t i c S t r e s s D i s o r d e r R e a c t i v e A t t a c h m e n t D i s o r d e r P o s t - t r a u m a t i c S t r e s s D i s o r d e r R e a c t i v e A t t a c h m e n t D i s o r d e r P o s t - t r a u m a t i c S t r e s s D i s o r d e r R e a c t i v e A t t a c h m e n t D i s o r d e r P o s t - t r a u m a t i c S t r e s s D i s o r d e r R e a c t i v e A t t a c h m e n t D i s o r d e r P o s t - t r a u m a t i c S t r e s s D i s o r d e r R e a c t i v e A t t a c h m e n t D i s o r d e r P o s t - t r a u m a t i c S t r e s s D i s o r d e r R e a c t i v e A t t a c h m e n t D i s o r d e r P o s t - t r a u m a t i c S t r e s s D i s o r d e r Reactive Attachment Disorder Post-traumatic Stress Disorder Reactive Attachment Disorder Post-traumatic Stress Disorder Reactive Attachment Disorder Post-traumatic Stress Disorder Reactive Attachment Disorder Post-traumatic Stress Disorder Reactive Attachment Disorder Post-traumatic Stress Disorder Reactive Attachment Disorder Post-traumatic Stress Disorder Reactive Attachment Disorder Post-traumatic Stress Disorder Reactive Attachment Disorder Post-traumatic Stress Disorder Reactive Attachment Disorder Post-traumatic Stress Disorder Reactive Attachment Disorder Post-traumatic Stress Disorder Reactive Attachment Disorder Post-traumatic Stress Disorder Reactive Attachment Disorder Post-traumatic Stress Disorder Outpatient<td Attender: Jermyn 03/27/2017 Assessment [use TIFFANIE MORA ID="[id number]">[facility]</td><td>[facility] 03:15:00 PM For S.o.a.p. ([facility]</td><td>[facility] EST - Note [facility]</td><td>03/27/2017</td><td><content PA 10/2017 Text]Assessment Health ID="[id number]">Assessment [use For 04:13:28 PM [use For Center) S.o.a.p. Note Free Text]</content></td> EST S.o.a.p. Note Free Text]Assessment [use For S.o.a.p. Note Free Text]Assessment [use For S.o.a.p. Note Free Text]Assessment [use For S.o.a.p. Note Free Text]Assessment [use For S.o.a.p. Note Free Text]Assessment [use For S.o.a.p. Note Free Text]Assessment [use For S.o.a.p. Note Free Text]Assessment [use For S.o.a.p. Note Free Text]Assessment [use For S.o.a.p. Note Free Text]Assessment [use For S.o.a.p. Note Free Text]Assessment [use For S.o.a.p. Note Free Text] Assessment [use For S.o.a.p. Note Free T ext] Assessment [use For S.o.a.p. Note Free T ext] Assessment [use For S.o.a.p. Note Free T ext] Assessment [use For S.o.a.p. Note Free T ext] Assessment [use For S.o.a.p. Note Free T ext] Assessment [use For S.o.a.p. Note Free T ext] Assessment [use For S.o.a.p. Note Free T ext] Assessment [use For S.o.a.p. Note Free T ext] Assessment [use For S.o.a.p. Note Free T ext] Assessment [use For S.o.a.p. Note Free T ext] Assessment [use For S.o.a.p. Note Free T ext] Assessment [use For S.o.a.p. Note Free T ext] Outpatient<td Attender: Mira Cruz 02/27/2017 Assessment [use TIFFANIE MORA ID="[id number]">[facility]</td><td>MARTA--- [facility] 12:00:00 PM For S.o.a.p. (Jermynting ALANIZ MD</td><td>[facility] EST - Note [facility]</td><td>02/27/2017</td><td><content 02/16 Text]Assessment Health ID="[id number]">Assessment [use For S.o.a.p. 12:35:37 PM [use For Center) Note Free Text]</content></td> EST S.o.a .p. Note Free Text]Assessment [use For S.o.a.p. Note Free Text]Assessment [use For S.o.a.p. Note Free Text]Assessment [use For S.o.a.p. Note Free Text]Assessment [use For S.o.a.p. Note Free Text]Assessment [use For S.o.a.p. Note Free Text]Assessment [use For S.o.a.p. Note Free Text]Assessment [use For S.o.a.p. Note Free Text]Assessment [use For S.o.a.p. Note Free Text]Assessment [use For S.o.a.p. Note Free Text]Assessment [use For S.o.a.p. Note Free Text] Assessment [use For S.o.a.p. Note Free T ext] Assessment [use For S.o.a.p. Note Free T ext] Assessment [use For S.o.a.p. Note Free T ext] Assessment [use For S.o.a.p. Note Free T ext] Assessment [use For S.o.a.p. Note Free T ext] Assessment [use For S.o.a.p. Note Free T ext] Assessment [use For S.o.a.p. Note Free T ext] Assessment [use For S.o.a.p. Note Free T ext] Assessment [use For S.o.a.p. Note Free T ext] Assessment [use For S.o.a.p. Note Free T ext] Assessment [use For S.o.a.p. Note Free T ext] Assessment [use For S.o.a.p. Note Free T ext] Outpatient<td Attender: Mira Cruz 02/27/2017 Post-traumatic Desmond s JACKSON ID="[id number]">CONTINUING CEASAR cannon 11:00:00 AM DisorderPost-traumatic (Jermyn THERAPY</td><td>CEASAR [facility] ter EST - Stress [facility]</td><td>[facility] 02/27/2017 DisorderPost-traumatic Health Center</td><td>02/27/2017</td><td><content CAMPUS COORDINATOR 11:5 9:00 PM Stress Center) ID="[id number]">Post-traumatic ES T DisorderPost-traumatic Stress Disorder</content></td> Stres s DisorderPost-traumatic Stress DisorderPost-traumatic Stress DisorderPost-traumatic Stress DisorderPost-traumatic Stress DisorderPost-traumatic Stress DisorderPost-traumatic Stress DisorderPost-traumatic Stress DisorderPost-traumatic Stress Disorder Post-traumatic Stress Disorder Post-traumatic Stress Disorder Post-traumatic Stress Disorder Post-traumatic Stress Disorder Post-traumatic Stress Disorder Post-traumatic Stress Disorder Post-traumatic Stress Disorder Post-traumatic Stress Disorder Post-traumatic Stress Disorder Post-traumatic Stress Disorder Post-traumatic Stress Disorder Post-traumatic Stress Disorder Outpatient<td Attender: Mira Cruz 02/13/2017 Assessment [use For JACKSON ID="[id number]">COMPLETE MARTA [facility]eb[facility] leong 10:15:00 AM S.o.a.p. Note Free (Jermyn PHYSICAL EXAM</td><td>[facility] Text][facility]</td><td>[facility]</td><td>02/13/2017</td><td><content 12:1 9:05 PM Adolescent (12 - 17 Center) ID="[id number]">Vaginal EST Yrs)Vaginal Discharge</content>, <content Discha rgeAssessment ID="[id number]">Routine [use For S.o.a.p. History and Physical Adolescent (12 - 17 Note Free Yrs)</content>, <content Text]Routin e History ID="[id number]">Assessment and Physical [use For S.o.a.p. Note Free Adolesce nt (12 - 17 Text]</content></td> Yrs)Vaginal DischargeAssessment [use For S.o.a.p. Note Free Text]Routine History and Physical Adolescent (12 - 17 Yrs)Vaginal DischargeAssessment [use For S.o.a.p. Note Free Text]Routine History and Physical Adolescent (12 - 17 Yrs)Vaginal DischargeAssessment [use For S.o.a.p. Note Free Text]Routine History and Physical Adolescent (12 - 17 Yrs)Vaginal DischargeAssessment [use For S.o.a.p. Note Free Text]Routine History and Physical Adolescent (12 - 17 Yrs)Vaginal DischargeAssessment [use For S.o.a.p. Note Free Text]Routine History and Physical Adolescent (12 - 17 Yrs)Vaginal DischargeAssessment [use For S.o.a.p. Note Free Text]Routine History and Physical Adolescent (12 - 17 Yrs)Vaginal DischargeAssessment [use For S.o.a.p. Note Free Text]Routine History and Physical Adolescent (12 - 17 Yrs)Vaginal DischargeAssessment [use For S.o.a.p. Note Free Text]Routine History and Physical Adolescent (12 - 17 Yrs)Vaginal DischargeAssessment [use For S.o.a.p. Note Free Text]Routine History and Physical Adolescent (12 - 17 Yrs)Vaginal DischargeAssessment [use For S.o.a.p. Note Free Text]Routine History and Physical Adolescent (12 - 17 Yrs)Vaginal Discharge Assessment [use For S.o.a.p. Note Free T ext] Routine History and Physical Adolescent (12 - 17 Yrs) Vaginal Discharge Assessment [use For S.o.a.p. Note Free T ext] Routine History and Physical Adolescent (12 - 17 Yrs) Vaginal Discharge Assessment [use For S.o.a.p. Note Free T ext] Routine History and Physical Adolescent (12 - 17 Yrs) Vaginal Discharge Assessment [use For S.o.a.p. Note Free T ext] Routine History and Physical Adolescent (12 - 17 Yrs) Vaginal Discharge Assessment [use For S.o.a.p. Note Free T ext] Routine History and Physical Adolescent (12 - 17 Yrs) Vaginal Discharge Assessment [use For S.o.a.p. Note Free T ext] Routine History and Physical Adolescent (12 - 17 Yrs) Vaginal Discharge Assessment [use For S.o.a.p. Note Free T ext] Routine History and Physical Adolescent (12 - 17 Yrs) Vaginal Discharge Assessment [use For S.o.a.p. Note Free T ext] Routine History and Physical Adolescent (12 - 17 Yrs) Vaginal Discharge Assessment [use For S.o.a.p. Note Free T ext] Routine History and Physical Adolescent (12 - 17 Yrs) Vaginal Discharge Assessment [use For S.o.a.p. Note Free T ext] Routine History and Physical Adolescent (12 - 17 Yrs) Vaginal Discharge Assessment [use For S.o.a.p. Note Free T ext] Routine History and Physical Adolescent (12 - 17 Yrs) Vaginal Discharge Assessment [use For S.o.a.p. Note Free T ext] Routine History and Physical Adolescent (12 - 17 Yrs) Vaginal Discharge Outpatient<td Attender: Mira Cruz 02/06/2017 Post-traumatic Stres s GLEN ID="[id number]">CONTINUING CEASAR [facility]od 11:15:00 AM DisorderPost-traumatic (Jermyn THERAPY</td><td>[facility] EST - Stress Neighborhood CAMPUS COORDINATOR</td><td>[facility] 02/06/2017 DisorderPost-traumatic Health Center</td><td>02/06/2017</td><td><content CAMPUS COORDINATOR 11:5 9:00 PM Stress Center) ID="[id number]">Post-traumatic ES T DisorderPost-traumatic Stress Disorder</content>, <content Stress ID="[id number]">Adjustment DisorderPost-traumatic Disorder</content></td> Stress DisorderPost-traumatic Stress DisorderPost-traumatic Stress DisorderPost-traumatic Stress DisorderPost-traumatic Stress DisorderPost-traumatic Stress DisorderPost-traumatic Stress DisorderPost-traumatic Stress DisorderAdjustment DisorderAdjustment DisorderAdjustment DisorderAdjustment DisorderAdjustment DisorderAdjustment DisorderAdjustment DisorderAdjustment DisorderAdjustment DisorderAdjustment DisorderAdjustment DisorderAdjustment Disorder Post-traumatic Stress Disorder Post-traumatic Stress Disorder Post-traumatic Stress Disorder Post-traumatic Stress Disorder Post-traumatic Stress Disorder Post-traumatic Stress Disorder Post-traumatic Stress Disorder Post-traumatic Stress Disorder Post-traumatic Stress Disorder Post-traumatic Stress Disorder Post-traumatic Stress Disorder Post-traumatic Stress Disorder Adjustment Disorder Adjustment Disorder Adjustment Disorder Adjustment Disorder Adjustment Disorder Adjustment Disorder Adjustment Disorder Adjustment Disorder Adjustment Disorder Adjustment Disorder Adjustment Disorder Adjustment Disorder Outpatient<td Attender: Mira Cruz 02/06/2017 Assessment [use TIFFANIE MORA ID="[id number]">OFFICE [facility] 10:00:00 AM For S.o.a.p. (Jermyn VISIT</td><td>[facility] EST - Not e Free Neighborhood </td><td>[facility] Text]Assessment Health Center</td><td>02/06/2017</td><td><content 01:3 4:44 PM [use For Center) ID="[id number]">Assessment EST S.o.a.p. Note [use For S.o.a.p. Note Free Free Text]</content></td> Text]Assessment [use For S.o.a.p. Note Free Text]Assessment [use For S.o.a.p. Note Free Text]Assessment [use For S.o.a.p. Note Free Text]Assessment [use For S.o.a.p. Note Free Text]Assessment [use For S.o.a.p. Note Free Text]Assessment [use For S.o.a.p. Note Free Text]Assessment [use For S.o.a.p. Note Free Text]Assessment [use For S.o.a.p. Note Free Text]Assessment [use For S.o.a.p. Note Free Text]Assessment [use For S.o.a.p. Note Free Text] Assessment [use For S.o.a.p. Note Free T ext] Assessment [use For S.o.a.p. Note Free T ext] Assessment [use For S.o.a.p. Note Free T ext] Assessment [use For S.o.a.p. Note Free T ext] Assessment [use For S.o.a.p. Note Free T ext] Assessment [use For S.o.a.p. Note Free T ext] Assessment [use For S.o.a.p. Note Free T ext] Assessment [use For S.o.a.p. Note Free T ext] Assessment [use For S.o.a.p. Note Free T ext] Assessment [use For S.o.a.p. Note Free T ext] Assessment [use For S.o.a.p. Note Free T ext] Assessment [use For S.o.a.p. Note Free T ext] Outpatient<td Attender: Mira Cruz 01/29/2017 Post-traumatic Stres s GLEN ID="[id number]">CONTINUING CEASAR [facility] 03:15:00 PM DisorderPost-traumatic (Jermyn THERAPY</td><td>CE[facility]AR [facility] ter [facility]</td><td>[facility] 01/29/2017 DisorderPost-traumatic Health Center</td><td>01/29/2017</td><td><content CAMPUS COORDINATOR 11:5 9:00 PM Stress Center) ID="[id number]">Post-traumatic ES T DisorderPost-traumatic Stress Disorder</content>, <content Stress ID="[id number]">Post-traumatic DisorderPost-traumatic Stress Disorder</content>, <content Stress ID="[id number]">Adjustment DisorderPost-traumatic Disorder</content></td> Stress DisorderPost-traumatic Stress DisorderPost-traumatic Stress DisorderPost-traumatic Stress DisorderPost-traumatic Stress DisorderPost-traumatic Stress DisorderPost-traumatic Stress DisorderPost-traumatic Stress DisorderPost-traumatic Stress DisorderPost-traumatic Stress DisorderPost-traumatic Stress DisorderPost-traumatic Stress DisorderPost-traumatic Stress DisorderPost-traumatic Stress DisorderPost-traumatic Stress DisorderPost-traumatic Stress DisorderPost-traumatic Stress DisorderPost-traumatic Stress DisorderPost-traumatic Stress DisorderAdjustment DisorderAdjustment DisorderAdjustment DisorderAdjustment DisorderAdjustment DisorderAdjustment DisorderAdjustment DisorderAdjustment DisorderAdjustment DisorderAdjustment DisorderAdjustment DisorderAdjustment Disorder Post-traumatic Stress Disorder Post-traumatic Stress Disorder Post-traumatic Stress Disorder Post-traumatic Stress Disorder Post-traumatic Stress Disorder Post-traumatic Stress Disorder Post-traumatic Stress Disorder Post-traumatic Stress Disorder Post-traumatic Stress Disorder Post-traumatic Stress Disorder Post-traumatic Stress Disorder Post-traumatic Stress Disorder Post-traumatic Stress Disorder Post-traumatic Stress Disorder Post-traumatic Stress Disorder Post-traumatic Stress Disorder Post-traumatic Stress Disorder Post-traumatic Stress Disorder Post-traumatic Stress Disorder Post-traumatic Stress Disorder Post-traumatic Stress Disorder Post-traumatic Stress Disorder Post-traumatic Stress Disorder Post-traumatic Stress Disorder Adjustment Disorder Adjustment Disorder Adjustment Disorder Adjustment Disorder Adjustment Disorder Adjustment Disorder Adjustment Disorder Adjustment Disorder Adjustment Disorder Adjustment Disorder Adjustment Disorder Adjustment Disorder Outpatient<td Attender: Jermyn 01/26/2017 GLEN ID="[id number]">INITIAL LAMINE [facility] 01: 30:00 PM (Jermyn [facility]</td><td>[facility] Neighborhood </td><td>[facility] 01/26/2017 Health Health 11:59:00 PM Center) Center</td><td>01/26/2017</td><td></td> EST Outpatient<td Attender: Jermyn 01/09/2017 A JACKSON ID="[id number]">OFFICE [facility] 09:30:00 AM s (Jermyn VISIT</td><td>[facility] EST - s [facility] </td><td>[facility] 01/09/2017 e Health Health 12:44:04 PM s Center) Center</td><td>01/09/2017</td><td><content EST s ID="[id number]">Assessment m [use For S.o.a.p. Note Free e Text]</content></td> n t [ u s e F o r S . o . a . p . N o t e F r e e T e x t ] A s s e s s m e n t [ u s e F o r S . o . a . p . N o t e F r e e T e x t ] A s s e s s m e n t [ u s e F o r S . o . a . p . N o t e F r e e T e x t ] A s s e s s m e n t [ u s e F o r S . o . a . p . N o t e F r e e T e x t ] A s s e s s m e n t [ u s e F o r S . o . a . p . N o t e F r e e T e x t ] A s s e s s m e n t [ u s e F o r S . o . a . p . N o t e F r e e T e x t ] A s s e s s m e n t [ u s e F o r S . o . a . p . N o t e F r e e T e x t ] A s s e s s m e n t [ u s e F o r S . o . a . p . N o t e F r e e T e x t ] A s s e s s m e n t [ u s e F o r S . o . a . p . N o t e F r e e T e x t ] A s s e s s m e n t [ u s e F o r S . o . a . p . N o t e F r e e T e x t ] A s s e s s m e n t [ u s e F o r S . o . a . p . N o t e F r e e T e x t ] A s s e s s m e n t [ u s e F o r S . o . a . p . N o t e F r e e T e x t ] Assessment [use For S.o.a.p. Note Free T ext] Assessment [use For S.o.a.p. Note Free T ext] Assessment [use For S.o.a.p. Note Free T ext] Assessment [use For S.o.a.p. Note Free T ext] Assessment [use For S.o.a.p. Note Free T ext] Assessment [use For S.o.a.p. Note Free T ext] Assessment [use For S.o.a.p. Note Free T ext] Assessment [use For S.o.a.p. Note Free T ext] Assessment [use For S.o.a.p. Note Free T ext] Assessment [use For S.o.a.p. Note Free T ext] Assessment [use For S.o.a.p. Note Free T ext] Assessment [use For S.o.a.p. Note Free T ext] Outpatient<td Attender: Mira Cruz 12/26/2016 Adjustment JACKSON ID="[id number]">CONTINUING CEASAR William olilia 04:00:00 PM DisorderAdjustment (Jermyn THERAPY</td><td>[facility] ter EST - DisorderAdjustment Neighborhood CAMPUS COORDINATOR</td><td>[facility] 12/26/2016 DisorderAdjustment Health Center</td><td>12/26/2016</td><td><content CAMPUS COORDINATOR 11:5 9:00 PM DisorderAdjustment Center) ID="[id number]">Adjustment EST DisorderAdjustment Disorder</content></td> DisorderAdju stment DisorderAdjustment DisorderAdjustment DisorderAdjustment DisorderAdjustment DisorderAdjustment Disorder Adjustment Disorder Adjustment Disorder Adjustment Disorder Adjustment Disorder Adjustment Disorder Adjustment Disorder Adjustment Disorder Adjustment Disorder Adjustment Disorder Adjustment Disorder Adjustment Disorder Adjustment Disorder Outpatient<td Attender: Jermyn 12/12/2016 Adjustment GLEN ID="[id number]">CONTINUING CEASAR cannon 09:00:00 AM DisorderAdjustment (Jermyn THERAPY</td><td>[facility] ter EDT - DisorderAdjustment Neighborhood CAMPUS COORDINATOR</td><td>[facility] 12/12/2016 DisorderAdjustment Health Center</td><td>12/12/2016</td><td><content CAMPUS COORDINATOR 11:5 9:00 PM DisorderAdjustment Center) ID="[id number]">Adjustment EDT DisorderAdjustment Disorder</content></td> DisorderAdju stment DisorderAdjustment DisorderAdjustment DisorderAdjustment DisorderAdjustment DisorderAdjustment Disorder Adjustment Disorder Adjustment Disorder Adjustment Disorder Adjustment Disorder Adjustment Disorder Adjustment Disorder Adjustment Disorder Adjustment Disorder Adjustment Disorder Adjustment Disorder Adjustment Disorder Adjustment Disorder Outpatient<td Attender: Jermyn 12/10/2016 JACKSON ID="[id number]">Regular RICHIE Neighborhood 04: 00:00 PM (Jermyn Sonogram</td><td>RICHIE PONCE MD [facility] EDT - Neighborhood MD</td><td>[facility] 12/10/2016 Health Health 05:37:04 PM Center) Center</td><td>12/10/2016</td><td></td> EDT Outpatient<td Attender: Mira Cruz 11/28/2016 A JACKSON ID="[id number]">INITIAL [facility] 04: 00:00 PM d (Jermyn [facility]</td><td>[facility] EDT - j [facility]</td><td>[facility] 11/28/2016 [facility] COORDINATOR 11:59:00 PM s Cent er) Center</td><td>11/28/2016</td><td><content EDT t ID="[id number]">Adjustment m Disorder</content></td> e n t D i s o r d e r A d j u s t m e n t D i s o r d e r A d j u s t m e n t D i s o r d e r A d j u s t m e n t D i s o r d e r A d j u s t m e n t D i s o r d e r A d j u s t m e n t D i s o r d e r A d j u s t m e n t D i s o r d e r A d j u s t m e n t D i s o r d e r A d j u s t m e n t D i s o r d e r A d j u s t m e n t D i s o r d e r A d j u s t m e n t D i s o r d e r A d j u s t m e n t D i s o r d e r Adjustment Disorder Adjustment Disorder Adjustment Disorder Adjustment Disorder Adjustment Disorder Adjustment Disorder Adjustment Disorder Adjustment Disorder Adjustment Disorder Adjustment Disorder Adjustment Disorder Adjustment Disorder Outpatient<td ID="[id number]">OFFICE Attender: Mira Cruz 11/20/2016 DysmenorrheaAnxiety GLEN VISIT</td><td>[place]--- CORBIN CADE</td><td>[facility] 02:45:00 PM Disorder ([facility] Health Center EDT - NosDysmenorrh eaAnxiety [facility]</td><td>11/20/2016</td><td><content 06/2016 Disorder Health ID="[id number]">Anxiety Disorder 04:49:10 PM NosDysmenorrheaAnxiety Center) Nos</content>, <content EDT Disorder ID="[id number]">Dysmenorrhea</content></td> NosDysmenorrheaAnxiety Disorder NosDysmenorrheaAnxiety Disorder NosDysmenorrheaAnxiety Disorder NosDysmenorrheaAnxiety Disorder NosDysmenorrheaAnxiety Disorder NosDysmenorrheaAnxiety Disorder NosDysmenorrheaAnxiety Disorder NosDysmenorrheaAnxiety Disorder NosDysmenorrheaAnxiety Disorder Nos Dysmenorrhea Anxiety Disorder Nos Dysmenorrhea Anxiety Disorder Nos Dysmenorrhea Anxiety Disorder Nos Dysmenorrhea Anxiety Disorder Nos Dysmenorrhea Anxiety Disorder Nos Dysmenorrhea Anxiety Disorder Nos Dysmenorrhea Anxiety Disorder Nos Dysmenorrhea Anxiety Disorder Nos Dysmenorrhea Anxiety Disorder Nos Dysmenorrhea Anxiety Disorder Nos Dysmenorrhea Anxiety Disorder Nos Dysmenorrhea Anxiety Disorder Nos Outpatient<td Attender: Mira Cruz 11/06/2016 Common JACKSON ID="[id number]">[place]</td><td>[place] 01:45:00 PM ColdOtitis (Jermyn CORBIN CADE</td><td>[facility] Health Center EDT - Media Left [facility]</td><td>11/06/2016</td><td><content 10/18 [facility] ID="[id number]">Otitis Media Left 02:14:26 PM ColdOtitis Center) Ear</content>, <content EDT Media Left ID="[id number]">Common Cold</content></td> EarCommon ColdOtitis Media Left EarCommon ColdOtitis Media Left EarCommon ColdOtitis Media Left EarCommon ColdOtitis Media Left EarCommon ColdOtitis Media Left EarCommon ColdOtitis Media Left EarCommon ColdOtitis Media Left EarCommon ColdOtitis Media Left EarCommon ColdOtitis Media Left EarCommon ColdOtitis Media Left Ear Common Cold Otitis Media Left Ear Common Cold Otitis Media Left Ear Common Cold Otitis Media Left Ear Common Cold Otitis Media Left Ear Common Cold Otitis Media Left Ear Common Cold Otitis Media Left Ear Common Cold Otitis Media Left Ear Common Cold Otitis Media Left Ear Common Cold Otitis Media Left Ear Common Cold Otitis Media Left Ear Common Cold Otitis Media Left Ear Common Cold Otitis Media Left Ear Outpatient<td Attender: Kendra 09/13/2016 GLEN ID="[id number]">*[facility] 12:00:00 PM (Jermyn Reading*</td><td>[facility] EDT [facility] MD</td><td>[facility] 09/13/2016 Health Center</td><td>09/13/2016</td><td></td> 12:19:0 3 PM Center) EDT Outpatient<td Attender: Kendra 09/11/2016 A GLEN ID="[id number]">[facility] 12:00: 00 PM s (Jermyn S</td><td[facility] EDT - s [facility]</td><td>[facility] 09/11/2016 e Health Center</td><td>09/11/2016</td><td><luis 12:25: 45 PM s Center) nt EDT s ID="[id number]">Assessment m [use For S.o.a.p. Note Free e Text]</content></td> n t [ u s e F o r S . o . a . p . N o t e F r e e T e x t ] A s s e s s m e n t [ u s e F o r S . o . a . p . N o t e F r e e T e x t ] A s s e s s m e n t [ u s e F o r S . o . a . p . N o t e F r e e T e x t ] A s s e s s m e n t [ u s e F o r S . o . a . p . N o t e F r e e T e x t ] A s s e s s m e n t [ u s e F o r S . o . a . p . N o t e F r e e T e x t ] A s s e s s m e n t [ u s e F o r S . o . a . p . N o t e F r e e T e x t ] A s s e s s m e n t [ u s e F o r S . o . a . p . N o t e F r e e T e x t ] A s s e s s m e n t [ u s e F o r S . o . a . p . N o t e F r e e T e x t ] A s s e s s m e n t [ u s e F o r S . o . a . p . N o t e F r e e T e x t ] A s s e s s m e n t [ u s e F o r S . o . a . p . N o t e F r e e T e x t ] A s s e s s m e n t [ u s e F o r S . o . a . p . N o t e F r e e T e x t ] A s s e s s m e n t [ u s e F o r S . o . a . p . N o t e F r e e T e x t ] Assessment [use For S.o.a.p. Note Free T ext] Assessment [use For S.o.a.p. Note Free T ext] Assessment [use For S.o.a.p. Note Free T ext] Assessment [use For S.o.a.p. Note Free T ext] Assessment [use For S.o.a.p. Note Free T ext] Assessment [use For S.o.a.p. Note Free T ext] Assessment [use For S.o.a.p. Note Free T ext] Assessment [use For S.o.a.p. Note Free T ext] Assessment [use For S.o.a.p. Note Free T ext] Assessment [use For S.o.a.p. Note Free T ext] Assessment [use For S.o.a.p. Note Free T ext] Assessment [use For S.o.a.p. Note Free T ext] Outpatient<td Attender: Mira Cruz 08/08/2016 ObesityObesityObesityObesityObesityObesityObesityObesityObesityObesityObesityObe sity JACKSON ID="[id number]">OFFICE [facility] 11:3 0:00 AM (Mira Cruz VISIT</td><td>[place]--- CORBIN CADE</td><td>Mira MUNOZ [facility] EDT [facility] 08/08/2016 [facility] Center</td><td>08/08/2016</td><td><content 04:4 8:58 PM Center) ID="[id number]">Obesity</content></td> EDT Obesity Obesity Obesity Obesity Obesity Obesity Obesity Obesity Obesity Obesity Obesity Obesity Outpatient<td Attender: Kendra 07/28/2016 GLEN ID="er[id number]">*No [facility]UE [facility] 02:31:00 PM (Mira Cruz Show*</td><td>[facility]</td><td>[facility] 07/28/2016 Health Center</td><td>07/28/2016</td><td></td> 11:59:0 0 PM Center) EDT Outpatient<td Attender: 07/25/2016 GLEN ID="[id number]">*OUTRE BULE 03:26: 00 PM (Mira Cruz [facility]*</td><td>BLUE ARTEMIO CNM</td><td> ARTEMIO [facility] EDT - Neighborhood 07/25/2016 Health </td><td>07/25/2016</td><td></td> 11:59:00 PM Center) EDT Outpatient<td Attender: Kendra 07/11/2016 C GLEN ID="[id number]">OFFICE [facility] 03:30: 00 PM h (Mira Cruz VISIT</td><td>BLUE ULLOA [facility] Health EDT - [facility]</td><td>[facility] 07/11/2016 a Health Center</td><td>07/11/2016</td><td><luis 05:16: 12 PM Center) nt EDT y ID="[id number]">Chlamydial d Infections</content></td> i a l I n f e c t i o n s C h l a m y d i a l I n f e c t i o n s C h l a m y d i a l I n f e c t i o n s C h l a m y d i a l I n f e c t i o n s C h l a m y d i a l I n f e c t i o n s C h l a m y d i a l I n f e c t i o n s C h l a m y d i a l I n f e c t i o n s C h l a m y d i a l I n f e c t i o n s C h l a m y d i a l I n f e c t i o n s C h l a m y d i a l I n f e c t i o n s C h l a m y d i a l I n f e c t i o n s C h l a m y d i a l I n f e c t i o n s Chlamydial Infections Chlamydial Infections Chlamydial Infections Chlamydial Infections Chlamydial Infections Chlamydial Infections Chlamydial Infections Chlamydial Infections Chlamydial Infections Chlamydial Infections Chlamydial Infections Chlamydial Infections Outpatient<td Attender: 07/10/2016 JACKSON ID="[id number]">[Patient NELLI 05:3 1:00 PM (Mira Cruz Encounter]</td><td>NELLI LITTLE MD</td><td> [facility] EDT - Neighborhood 07/10/2016 Health </td><td>07/10/2016</td><td></td> 11:59:00 PM [place]) EDT Outpatient<td Attender: Yotrell 07/01/2016 GLEN ID="[id number]">[place]</ ARLETH ers 03: 30:00 PM (Jermyn td><td>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</td><td>[place] 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 Comm EDT - [facility] 07/01/2016 Health Center</td><td>07/01/2016</td><td></td> y 07:40:5 1 PM [place]) Heal EDT th Cent er Outpatient<td Attender: Pasha 06/23/2016 GLEN ID="[id number]">WALKINS</ BLUE ers 03: 15:00 PM (Jermyn td><td>BLUE ARTEMIO CNM</td><td>[place] ARTEMIO CNM Comm EDT - [facility] 06/23/2016 Health Center</td><td>06/23/2016</td><td></td> y 03:51:3 5 PM [place]) Heal EDT th Cent er Outpatient<td Attender: Flo 05/08/2016 Asse JACKSON ID="[id number]">COMPLETE [facility] ers 07:3 0:00 PM ssme (Jermyn PHYSICAL EXAM</td><td>ELDER [facility] EDT - nt [facility] SHAWNRAUL CADE</td><td>[place] [facility] 05/08/2016 [facility] y 08:31:55 PM Immu Center) Center</td><td>05/08/2016</td><td><content Heal EDT steve ID="[id number]">Well Child th tion Normal Routine History and Cent s Physical</content>, <content er Revi ID="[id number]">Assessment of ewed Immunizations Reviewed and and Current</content></td> Jaquelin Moncada al Rout ine Hist ory and Phys ical Asse ssme nt of Immu steve tion s Revi ewed and Curr entW ell Chil d Norm al Rout ine Hist ory and Phys ical Asse ssme nt of Immu steve tion s Revi ewed and Curr entW ell Chil d Norm al Rout ine Hist ory and Phys ical Asse ssme nt of Immu steve tion s Revi ewed and Curr entW ell Chil d Norm al Rout ine Hist ory and Phys ical Asse ssme nt of Immu steve tion s Revi ewed and Curr entW ell Chil d Norm al Rout ine Hist ory and Phys ical Asse ssme nt of Immu steve tion s Revi ewed and Curr entW ell Chil d Norm al Rout ine Hist ory and Phys ical Asse ssme nt of Immu steve tion s Revi ewed and Curr entW ell Chil d Norm al Rout ine Hist ory and Phys ical Asse ssme nt of Immu steve tion s Revi ewed and Curr entW ell Chil d Norm al Rout ine Hist ory and Phys ical Asse ssme nt of Immu steve tion s Revi ewed and Curr entW ell Chil d Norm al Rout ine Hist ory and Phys ical Asse ssme nt of Immu steve tion s Revi ewed and Curr entW ell Chil d Norm al Rout ine Hist ory and Phys ical Asse ssme nt of Immu steve tion s Revi ewed and Curr entW ell Chil d Norm al Rout ine Hist ory and Phys ical Asse ssme nt of Immu steve tion s Revi ewed and Curr entW ell Chil d Norm al Rout ine Hist ory and Phys ical Assessment of Immunizations Reviewed and Current Well Child Normal Routine History and Ph ysical Assessment of Immunizations Reviewed and Current Well Child Normal Routine History and Ph ysical Assessment of Immunizations Reviewed and Current Well Child Normal Routine History and Ph ysical Assessment of Immunizations Reviewed and Current Well Child Normal Routine History and Ph ysical Assessment of Immunizations Reviewed and Current Well Child Normal Routine History and Ph ysical Assessment of Immunizations Reviewed and Current Well Child Normal Routine History and Ph ysical Assessment of Immunizations Reviewed and Current Well Child Normal Routine History and Ph ysical Assessment of Immunizations Reviewed and Current Well Child Normal Routine History and Ph ysical Assessment of Immunizations Reviewed and Current Well Child Normal Routine History and Ph ysical Assessment of Immunizations Reviewed and Current Well Child Normal Routine History and Ph ysical Assessment of Immunizations Reviewed and Current Well Child Normal Routine History and Ph ysical Assessment of Immunizations Reviewed and Current Well Child Normal Routine History and Ph ysical Outpatient<td Attender: Elder Kendra 03/20/2016 PATRICIA ESTEBAN ID="[id number]">*[facility] 09 :17:00 AM (Jermyn Show*</td><td>[facility] Ne[facility] </td><td>[facility] 03/20/2016 Health Center</td><td>03/20/2016</td><td></td> 11:59:0 0 PM Center) EST Outpatient<td Attender: CHUN Gardner 08/10/2015 TONNY MORAN ID="[id number]">*Quentin RODRIGUEZ MD [facility] 11:42: 00 AM (Jermyn Update*</td><td>[facility] EDT - [facility] </td><td>[facility] 08/10/2015 Health Center</td><td>08/10/2015</td><td></td> 11:59:0 0 PM Center) EDT Outpatient<td Attender: CHUN Gardner 01/17/2015 TONNY MORAN ID="[id number]">*Quentin RODRIGUEZ MD [facility] 04:02: 00 PM (Jermyn Update*</td><td>[facility] EST - [facility] </td><td>[facility] 01/17/2015 Health Center</td><td>01/17/2015</td><td></td> 11:59:0 0 PM Center) EST Outpatient<td Attender: [facility] 11/30/[address] ID="[id number]">*Chart JENNIFER CADE [place] 05:01: 00 PM (Jermyn Update*</td><td>[facility] Obstetrics EDT - Neighborhood </td><td>[facility] 11/30/2014 Health Obstetrics</td><td>11/30/2014</td><td></ 11:59: 00 PM Center) td> EDT Outpatient<td Attender: CHUN Gardner 11/16/2014 Tova MORAN ID="[id number]">ALYSSIA RODRIGUEZ MD [facility] 12:30: 00 PM r (Mira Cruz S</td><td>[facility] Health EDT - o [place] hemphill MD</td><td>[facility] 11/16/2014 Health [place]</td><td>11/16/2014</td><td><luis 02:24: 07 PM D Center) nt ID="[id number]">Upper EDT e Respiratory Infection Acute</content>, f <content i ID="[id number]">Assessment c [use For S.o.a.p. 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 o . a . p . N o t e F r e e T e x t ] U p p e r R e s p i r a t o r y I n f e c t i o n A c u t e I r o n D e f i c i e n c y A n e m i a S e c o n d a r y T o I n a d e q D i e t I r o n I n t a k e A s s e s s m e n t [ u s e F o r S . o . a . p . N o t e F r e e T e x t ] U p p e r R e s p i r a t o r y I n f e c t i o n A c u t e I r o n D e f i c i e n c y A n e m i a S e c o n d a r y T o I n a d e q D i e t I r o n I n t a k e A s s e s s m e n t [ u s e F o r S . o . a . p . N o t e F r e e T e x t ] U p p e r R e s p i r a t o r y I n f e c t i o n A c u t e I r o n D e f i c i e n c y A n e m i a S e c o n d a r y T o I n a d e q D i e t I r o n I n t a k e A s s e s s m e n t [ u s e F o r S . o . a . p . N o t e F r e e T e x t ] U p p e r R e s p i r a t o r y I n f e c t i o n A c u t e I r o n D e f i c i e n c y A n e m i a S e c o n d a r y T o I n a d e q D i e t I r o n I n t a k e A s s e s s m e n t [ u s e F o r S . o . a . p . N o t e F r e e T e x t ] U p p e r R e s p i r a t o r y I n f e c t i o n A c u t e I r o n D e f i c i e n c y A n e m i a S e c o n d a r y T o I n a d e q D i e t I r o n I n t a k e A s s e s s m e n t [ u s e F o r S . o . a . p . N o t e F r e e T e x t ] U p p e r R e s p i r a t o r y I n f e c t i o n A c u t e I r o n D e f i c i e n c y A n e m i a S e c o n d a r y T o I n a d e q D i e t I r o n I n t a k e A s s e s s m e n t [ u s e F o r S . o . a . p . N o t e F r e e T e x t ] U p p e r R e s p i r a t o r y I n f e c t i o n A c u t e I r o n D e f i c i e n c y A n e m i a S e c o n d a r y T o I n a d e q D i e t I r o n I n t a k e A s s e s s m e n t [ u s e F o r S . o . a . p . N o t e F r e e T e x t ] U p p e r R e s p i r a t o r y I n f e c t i o n A c u t e I r o n D e f i c i e n c y A n e m i a S e c o n d a r y T o I n a d e q D i e t I r o n I n t a k e A s s e s s m e n t [ u s e F o r S . o . a . p . N o t e F r e e T e x t ] U p p e r R e s p i r a t o r y I n f e c t i o n A c u t e I r o n D e f i c i e n c y A n e m i a S e c o n d a r y T o I n a d e q D i e t I r o n I n t a k e A s s e s s m e n t [ u s e F o r S . o . a . p . N o t e F r e e T e x t ] U p p e r R e s p i r a t o r y I n f e c t i o n A c u t e I r o n D e f i c i e n c y A n e m i a S e c o n d a r y T o I n a d e q D i e t I r o n I n t a k e A s s e s s m e n t [ u s e F o r S . o . a . p . N o t e F r e e T e x t ] U p p e r R e s p i r a t o r y I n f e c t i o n A c u t e I r o n D e f i c i e n c y A n e m i a S e c o n d a r y T o I n a d e q D i e t I r o n I n t a k e A s s e s s m e n t [ u s e F o r S . o . a . p . 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 Note Free T ext] Upper Respiratory Infection Acute Outpatient<td Attender: Kendra 11/06/2014 JACKSON ID="[id number]">*[facility] 11:37: 00 AM (Jermyn Update*</td><td>[facility] JENNIFER RODRIGUEZ MD Health EDT - [facility] </td><td>[facility] 11/06/2014 Health Center</td><td>11/06/2014</td><td></td> 11:59:0 0 PM Center) EDT Outpatient<td Attender: Kendra 09/29/2014 JACKSON ID="[id number]">*[facility] 04:33: 00 PM (Jermyn Update*</td><td>[facility]UN JENNIFER RODRIGUEZ MD Health EDT - [facility] </td><td>[facility] 09/29/2014 Health Center</td><td>09/29/2014</td><td></td> 11:59:0 0 PM Center) EDT Outpatient<td Attender: Kendra 09/11/2014 A JACKSON ID="[id number]">[facility] 09:00 :00 AM s (Jermyn E PHYSICAL EXAM</td><td>[facility] JENNIFER RODRIGUEZ MD Health EDT - s Scar CADE</td><td>[facility] 09/11/2014 e Health Center</td><td>09/11/2014</td><td><[place] 12:07 :49 PM s Center) t ID="[id number]">Routine EDT s History and Physical Adolescent (12 - 17 m Yrs)</content>, <content e ID="[id number]">Assessment n of Body Mass Index > 95 %</content></td> t o f B o d y M a s s I n d e x > 9 5 % R o u t i n e H i s t o r y a n d P h y s i c a l A d o l e s c e n t ( 1 2 - 7 Y r s ) A s s e s s m e n t o f B o d y M a s s I n d e x > 9 5 % R o u t i n e H i s t o r y a n d P h y s i c a l A d o l e s c e n t ( 1 2 - 7 Y r s ) A s s e s s m e n t o f B o d y M a s s I n d e x > 9 5 % R o u t i n e H i s t o r y a n d P h y s i c a l A d o l e s c e n t ( 1 2 - 7 Y r s ) A s s e s s m e n t o f B o d y M a s s I n d e x > 9 5 % R o u t i n e H i s t o r y a n d P h y s i c a l A d o l e s c e n t ( 1 2 - 7 Y r s ) A s s e s s m e n t o f B o d y M a s s I n d e x > 9 5 % R o u t i n e H i s t o r y a n d P h y s i c a l A d o l e s c e n t ( 1 2 - 7 Y r s ) A s s e s s m e n t o f B o d y M a s s I n d e x > 9 5 % R o u t i n e H i s t o r y a n d P h y s i c a l A d o l e s c e n t ( 1 2 - 7 Y r s ) A s s e s s m e n t o f B o d y M a s s I n d e x > 9 5 % R o u t i n e H i s t o r y a n d P h y s i c a l A d o l e s c e n t ( 1 2 - 7 Y r s ) A s s e s s m e n t o f B o d y M a s s I n d e x > 9 5 % R o u t i n e H i s t o r y a n d P h y s i c a l A d o l e s c e n t ( 1 2 - 7 Y r s ) A s s e s s m e n t o f B o d y M a s s I n d e x > 9 5 % R o u t i n e H i s t o r y a n d P h y s i c a l A d o l e s c e n t ( 1 2 - 7 Y r s ) A s s e s s m e n t o f B o d y M a s s I n d e x > 9 5 % R o u t i n e H i s t o r y a n d P h y s i c a l A d o l e s c e n t ( 1 2 - 7 Y r s ) A s s e s s m e n t o f B o d y M a s s I n d e x > 9 5 % R o u t i n e H i s t o r y a n d P h y s i c a l A d o l e s c e n t ( 1 2 - 7 Y r s ) A s s e s s m e n t o f B o d y M a s s I n d e x > 9 5 % R o u t i n e H i s t o r y a n d P h y s i c a l A d o l e s c e n t ( 1 2 - 7 Y r s ) Assessment of Body Mass Index > 95 % Routine History and Physical Adolescent (12 - 17 Yrs) Assessment of Body Mass Index > 95 % Routine History and Physical Adolescent (12 - 17 Yrs) Assessment of Body Mass Index > 95 % Routine History and Physical Adolescent (12 - 17 Yrs) Assessment of Body Mass Index > 95 % Routine History and Physical Adolescent (12 - 17 Yrs) Assessment of Body Mass Index > 95 % Routine History and Physical Adolescent (12 - 17 Yrs) Assessment of Body Mass Index > 95 % Routine History and Physical Adolescent (12 - 17 Yrs) Assessment of Body Mass Index > 95 % Routine History and Physical Adolescent (12 - 17 Yrs) Assessment of Body Mass Index > 95 % Routine History and Physical Adolescent (12 - 17 Yrs) Assessment of Body Mass Index > 95 % Routine History and Physical Adolescent (12 - 17 Yrs) Assessment of Body Mass Index > 95 % Routine History and Physical Adolescent (12 - 17 Yrs) Assessment of Body Mass Index > 95 % Routine History and Physical Adolescent (12 - 17 Yrs) Assessment of Body Mass Index > 95 % Routine History and Physical Adolescent (12 - 17 Yrs) Outpatient<td Attender: [place] 11/17/2012 GLEN [id number]">*[facility] 03:26: 00 PM (Jermyn Update*</td><td>CHUN RODRIGUEZ MD Health EDT - [facility] </td><td>[facility] 11/17/2012 Health Center</td><td>11/17/2012</td><td></td> 11:59:0 0 PM Center) EDT Outpatient<td Attender: Kendra 01/02/2012 GLEN ID="[id number]">Follow [facility] 01:48: 00 PM (Mira Cruz Up</td><td>CHUN RODRIGUEZ MD Health EST - [facility] </td><td>[facility] 01/02/2012 Health Center</td><td>01/02/2012</td><td></td> 11:59:0 0 PM Center) EST Outpatient<td Attender: [place] 11/19/2011 A GLEN ID="[id number]">COMPLET [facility] 01:28 :00 PM s (Mira Cruz E PHYSICAL EXAM</td><td>CHUN RODRIGUEZ MD Health EDT - [facility] </td><td>[facility] 11/19/2011 e Health Center</td><td>11/19/2011</td><td><conten 04:14 :01 PM s [place]) t ID="[id number]">Routine EDT s History and Physical Adolescent (12 - 17 m Yrs)</content>, <content e ID="[id number]">Assessment n [use For S.o.a.p. Note Free t Text]</content></td> [ u s e F o r S . o . a . p . N o t e F r e e T e x t ] R o u t i n e H i s t o r y a n d P h y s i c a l A d o l e s c e n t ( 1 2 - 7 Y r s ) A s s e s s m e n t [ u s e F o r S . o . a . p . N o t e F r e e T e x t ] R o u t i n e H i s t o r y a n d P h y s i c a l A d o l e s c e n t ( 1 2 - 7 Y r s ) A s s e s s m e n t [ u s e F o r S . o . a . p . N o t e F r e e T e x t ] R o u t i n e H i s t o r y a n d P h y s i c a l A d o l e s c e n t ( 1 2 - 7 Y r s ) A s s e s s m e n t [ u s e F o r S . o . a . p . N o t e F r e e T e x t ] R o u t i n e H i s t o r y a n d P h y s i c a l A d o l e s c e n t ( 1 2 - 7 Y r s ) A s s e s s m e n t [ u s e F o r S . o . a . p . N o t e F r e e T e x t ] R o u t i n e H i s t o r y a n d P h y s i c a l A d o l e s c e n t ( 1 2 - 7 Y r s ) A s s e s s m e n t [ u s e F o r S . o . a . p . N o t e F r e e T e x t ] R o u t i n e H i s t o r y a n d P h y s i c a l A d o l e s c e n t ( 1 2 - 7 Y r s ) A s s e s s m e n t [ u s e F o r S . o . a . p . N o t e F r e e T e x t ] R o u t i n e H i s t o r y a n d P h y s i c a l A d o l e s c e n t ( 1 2 - 7 Y r s ) A s s e s s m e n t [ u s e F o r S . o . a . p . N o t e F r e e T e x t ] R o u t i n e H i s t o r y a n d P h y s i c a l A d o l e s c e n t ( 1 7 Y r s ) A s s e s s m e n t [ u s e F o r S . o . a . p . N o t e F r e e T e x t ] R o u t i n e H i s t o r y a n d P h y s i c a l A d o l e s c e n t ( 1 - 7 Y r s ) A s s e s s m e n t [ u s e F o r S . o . a . p . N o t e F r e e T e x t ] R o u t i n e H i s t o r y a n d P h y s i c a l A d o l e s c e n t ( 1 2 - 7 Y r s ) A s s e s s m e n t [ u s e F o r S . o . a . p . N o t e F r e e T e x t ] R o u t i n e H i s t o r y a n d P h y s i c a l A d o l e s c e n t ( 1 2 - 7 Y r s ) A s s e s s m e n t [ u s e F o r S . o . a . p . N o t e F r e e T e x t ] R o u t i n e H i s t o r y a n d P h y s i c a l A d o l e s c e n t ( 1 2 - 1 7 Y r s ) Assessment [use For S.o.a.p. Note Free T ext] Routine History and Physical Adolescent (12 - 17 Yrs) Assessment [use For S.o.a.p. Note Free T ext] Routine History and Physical Adolescent (12 - 17 Yrs) Assessment [use For S.o.a.p. Note Free T ext] Routine History and Physical Adolescent (12 - 17 Yrs) Assessment [use For S.o.a.p. Note Free T ext] Routine History and Physical Adolescent (12 - 17 Yrs) Assessment [use For S.o.a.p. Note Free T ext] Routine History and Physical Adolescent (12 - 17 Yrs) Assessment [use For S.o.a.p. Note Free T ext] Routine History and Physical Adolescent (12 - 17 Yrs) Assessment [use For S.o.a.p. Note Free T ext] Routine History and Physical Adolescent (12 - 17 Yrs) Assessment [use For S.o.a.p. Note Free T ext] Routine History and Physical Adolescent (12 - 17 Yrs) Assessment [use For S.o.a.p. Note Free T ext] Routine History and Physical Adolescent (12 - 17 Yrs) Assessment [use For S.o.a.p. Note Free T ext] Routine History and Physical Adolescent (12 - 17 Yrs) Assessment [use For S.o.a.p. Note Free T ext] Routine History and Physical Adolescent (12 - 17 Yrs) Assessment [use For S.o.a.p. Note Free T ext] Routine History and Physical Adolescent (12 - 17 Yrs) Outpatient<td Attender: Kendra 11/11/2011 JACKSON ID="[id number]">WALKINS</td><td>[facility] 11:20:00 AM (Mira ROSALES MD</td><td>[facility]</td><td>11/11/2011</td><td></td> MD [place] [address] [place] [address] 03:10:31 PM Center) EDT Outpatient<td Attender: Kendra 11/04/2011 I JACKSON ID="[id number]">[facility]ALK[facility]</td><td[facility] 12:[facility] PM m (Jermynting ROSALES MD</td><td>[facility] EDT - p [facility]</td><td>11/04/2011</td><td><content MD Center 10/17 e Health ID="[id number]">[place]</content></td> 01:07:59 PM t [place]) EDT i g o I m p e t i g o I m p e t i g o I m p e t i g o I m p e t i g o I m p e t i g o I m p e t i g o I m p e t i g o I m p e t i g o I m p e t i g o I m p e t i g o I m p e t i g o Impetigo Impetigo Impetigo Impetigo Impetigo Impetigo Impetigo Impetigo Impetigo Impetigo Impetigo Impetigo Outpatient<td Attender: Kendra 10/14/2011 JACKSON ID="[id number]">*No [facility] 05:30:00 PM (Jermyn Show*</td><td>CHUN RODRIGUEZ MD Health EDT - [facility] </td><td>[facility] 10/14/2011 [facility]</td><td>10/14/2011</td><td></td> 11:59:0 0 PM Center) EDT Immunizations Vaccine Date Status Description Data Source(s) varicella 02/27/2017 completed Varicella 3 02/27/2017 Right Active [facility] 01:02:00 PM Arm (Administered) Neigh borhood ([facility]) meningococ 02/27/2017 completed Meningococ 1 02/27/2017 Left Active [facility] ziggy B, OMV 01:02:00 PM ziggy B [place] (Administered) Neighborhood ([facility] (Bexsero) [facility]) As of 02/27/2017 completed Hep B, 4 02/27/2017 Right Active [facility] [place] October 01:02:00 PM Adult Arm (Administered) N eighborhood (Jermyn 1999, a [facility] Neighborhood 2-dose Health hepatitis Cent er) B schedule for adolescent s (11-15 year olds) was FDA approved for Merck's Recombivax HB adult formulatio n. Use code 43 for the 2-dose. This code should be used for any use of standard adult formulatio n of hepatitis B vaccine. Hep A, 02/27/2017 completed Hep A 1 02/27/2017 Left Active [facility] ped/adol, 01:02:00 PM /Peds 2 [place] (Administered ) Neighborhood (Jermyn 2 dose EST dose [facility]) IIV3. This 02/06/2017 completed Influenza 1 02/06/2017 Right Active [facility] is one of 12:59:00 PM [place] (Administered) Neighborhood (Jermyn two codes [facility] Neighborhood replacing [facility] CVX 15, [place] ) which is being retired. Tdap 01/09/2017 completed Tdap 1 01/09/2017 Right Active [facility] 11:39:00 AM [place] (Administered) Neig hborhood ([facility]) meningococ 01/09/2017 completed Meningococ 1 01/09/2017 Left Active [facility] ziggy MCV4P 11:39:00 AM ziggy [place] (Administered) Neighborhood ([facility] (Menactra) [facility]) HPV9 01/09/2017 completed HPV Human 1 01/09/2017 Right Active mariuszkrissy Cruz JACKSON 11:39:00 AM Papilloma [place] (Administered) Neighborhood ([facility] Virus [facility] Vaccine [facility]) TB Skin 09/11/2016 completed PPD TB 3 09/11/2016 Active Me ashia GLEN test is 12:06:00 PM TST (Reported) ([facility] vaccine. [facility]) TB Skin 07/01/2016 completed PPD TB 2 07/01/2016 Right Active Mo unt Anthony GLEN test is 03:52:00 PM TST Arm (Administered) Mike tarango ([facility] vaccine. [facility]) TB Skin 05/08/2016 completed PPD TB 1 05/08/2016 Left Active Mo unt Anthony GLEN test is 08:14:00 PM TST Arm (Administered) Mike peckmonroe ([facility] vaccine. [facility]) Pneumococc 01/26/2004 completed Prevnar 13 3 01/26/2004 Ac tive Patient GLEN al 03:22:00 PM ( PCV ) (Reported) ([facility] PCV 13 [facility]) DTaP 01/26/2004 completed INFARIX 4 01/26/2004 Active Pat ient GLEN 03:22:00 PM DTaP (Reported) ([facility]) varicella 10/03/2000 completed Varicella 2 10/03/2000 Acti ve Patient GLEN 03:22:00 PM (Reported) ([facility]) MMR 10/03/2000 completed Measles,Mu 1 10/03/2000 Active Patient GLEN 03:22:00 PM mps, (Reported) ([facility] Rubella [facility] (MMR) [facility]) IPV 10/03/2000 completed IPV 3 10/03/2000 Active Patie nt GLEN 03:22:00 PM (Reported) ([facility]) DTaP 10/03/2000 completed INFARIX 3 10/03/2000 Active Pat ient GLEN 03:22:00 PM DTaP (Reported) ([facility]) As of 10/03/2000 completed Hep B, 3 10/03/2000 Active Paulina ent GLEN October 03:22:00 PM Adult (Reported) (Jermyn 1998, a [facility] 2-dose Health hepatitis Cent er) B schedule for adolescent s (11-15 year olds) was FDA approved for Merck's Recombivax HB adult formulatio n. Use code 43 for the 2-dose. This code should be used for any use of standard adult formulatio n of hepatitis B vaccine. varicella 01/28/2000 completed Varicella 1 01/28/2000 Acti ve Patient GLEN 03:24:00 PM (Reported) ([facility]) Pneumococc 01/28/2000 completed Prevnar 13 2 01/28/2000 Ac tive Patient GLEN al 03:22:00 PM ( PCV ) (Reported) (Jermyn conjugate EST Neig hborhood PCV 13 [facility]) IPV 01/28/2000 completed IPV 2 01/28/2000 Active Patie nt GLEN 03:22:00 PM (Reported) ([facility]) DTaP 01/28/2000 completed INFARIX 2 01/28/2000 Active Pat ient GLEN 03:22:00 PM DTaP (Reported) ([facility]) As of 01/28/2000 completed Hep B, 2 01/28/2000 Active Paulina ent JACKSON October 03:22:00 PM Adult (Reported) (Mira Cruz 1998, a EST [facility] [place] 2-dose Health hepatitis Cent er) B schedule for adolescent s (11-15 year olds) was FDA approved for Merck's Recombivax HB adult formulatio n. Use code 43 for the 2-dose. This code should be used for any use of standard adult formulatio n of hepatitis B vaccine. Pneumococc 1999 completed Prevnar 13 1 1999 Ac tive Patient GLEN al 03:22:00 PM ( PCV ) (Reported) (Jermyn conjugate EDT Neig hborhood PCV 13 [facility]) IPV 1999 completed IPV 1 1999 Active Patie nt GLEN 03:22:00 PM (Reported) ([facility]) As of 1999 completed Hep B, 1 1999 Active Paulina ent GLEN October 03:22:00 PM Adult (Reported) (Mira Cruz 1998, a EDT [facility] 2-dose Health hepatitis Cent er) B schedule for adolescent s (11-15 year olds) was FDA approved for Merck's Recombivax HB adult formulatio n. Use code 43 for the 2-dose. This code should be used for any use of standard adult formulatio n of hepatitis B vaccine. DTaP 1999 completed INFARIX 1 1999 Active Pat ient GLEN 02:21:00 PM DTaP (Reported) ([facility]) Medications Medication Brand Start Product Dose Route Administrative Pharmacy atus Indications Reaction Description Data Name Date Form Instructions Instructions Source(s) buspirone busPIR .0 Oral active NETS MART hydrochlori one 2020 Table (Mental de 10 MG HCl 04:00: t Health Oral Tablet 00 AM Associa marylou EDT n of Edgar r) Prazosin 2 [place] .0 Oral active NET SMART MG Oral in HCl 2020 Capsu (Mental Capsule 04:00: le Health 00 AM Associatio EDT n of Edgar r) ziprasidone Zipras .0 Oral active NE TSMART 40 MG Oral idone 2020 Capsu (Mental Capsule HCl 04:00: le Health 00 AM Associatio EDT n of Edgar r) Mirtazapine Mirtaz .0 Oral active NE TSMART 30 MG Oral apine 2020 Table (Mental Tablet 04:00: t Health 00 AM Associatio EDT n of Edgar r) Prazosin 2 [place] .0 Oral active NET SMART MG Oral in HCl 2020 Capsu (Mental Capsule 04:00: le Health 00 AM Associatio EDT n of Edgar r) Mirtazapine Mirtaz .0 Oral active NE TSMART 30 MG Oral apine 2020 Table (Mental Tablet 04:00: t Health 00 AM Associatio EDT n of Edgar r) Mirtazapine Mirtaz .0 Oral active NE TSMART 30 MG Oral apine 2020 Table (Mental Tablet 04:00: t Health 00 AM Associatio EDT n of Edgar r) Hydroxyzine hydrOX .0 Oral active NE TSMART Pamoate 25 Yzine 2020 Capsu (Mental MG Oral Pamoat 04:00: le Health Capsule e 00 AM Associatio EDT n of Edgar r) ziprasidone Geodon .0 Oral active NE TSMART 20 MG Oral 2020 Capsu (Mental Capsule 04:00: le Health [Geodon] 00 AM Associatio EDT n of Edgar r) Mirtazapine Mirtaz 1.0 Oral active NE TSMART 15 MG Oral apine 2019 Table (Mental Tablet 04:00: t Health 00 AM Associatio EDT n of Edgar r) Prazosin 2 [place] 1.0 Oral active NET SMART MG Oral in HCl 2019 Capsu (Mental Capsule 04:00: le Health 00 AM Associatio EDT n of Edgar r) Lurasidone Latuda .0 Oral active NET SMART Hydrochlori 2019 Table (Mental de 20 MG 04:00: t Health Oral Tablet 00 AM Associa marylou [Latuda] EDT n of Edgar r) Mirtazapine Mirtaz 1.0 Oral active NE TSMART 15 MG Oral apine 2019 Table (Mental Tablet 05:00: t Health 00 AM Associatio EST n of Edgar r) Mirtazapine Mirtaz 1.0 Oral active NE TSMART 15 MG Oral apine 2018 Table (Mental Tablet 05:00: t Health 00 AM Associatio EST n of Edgar r) 12/21/ ORAL active NETSMART 2019 (Mental 05:00: Health 00 AM Associatio EST n of Edgar r) 09/06/ ORAL complet NETSMART 2018 ed (Mental 04:00: Health 00 AM [facility]atio [facility]) Naproxen Naprox 06/24/ UNIT 1 active Naproxen G REENWAY 500 MG Oral en 2019 ([place] Tablet 500MG 12:00: Anthony Naproxen Oral 00 AM Neighborho 500MG Oral Tablet EDT od [facility] Tablet Center) Tylenol Tyleno 06/22/ UNIT 1 active Tylenol GRE ENWAY Extra l 2019 Extra ([place] Strength Extra 12:00: Strength Josh on 500MG Oral Streng 00 AM Neighb orho Tablet th EDT od [facility] 500MG Center) Oral Tablet Voltaren 1% Voltar 06/22/ APPLICAT 1 active Vol chemo GLEN Transdermal en 1% 2019 ION UNIT (Mo unt Gel Transd 12:00: Anthony ermal 00 AM Neighborho Gel EDT od Health Center) terconazole Terazo 05/21/ active Terazol 7 eCW3 4 MG/ML l 7 2018 0.4 % ([place] Vaginal 0.4 % 12:00: [place] Cream 00 AM Health [Terazol 7] EDT Care) Terazol 7 0.4 % Terazol 7 UNK 05/21/ active Terazol 7 e CW3 0.4 % 2018 0.4 % ([place] 12:00: [place] 00 AM Health EDT Care) Terazol 7 UNK 05/21/ active Terazol 7 e CW3 0.4 % 2018 0.4 % ([place] 12:00: [place] 00 AM Health EDT Care) Ibuprofen Ibupro 05/07/ UNIT complet Ibuprofe n GLEN 200 MG Oral fen 2018 ed ([place] Tablet 200MG 12:00: Anthony Ibuprofen Oral 00 AM Neighborh o 200MG Oral Tablet EDT od [facility] Tablet Center) ORTHO UNK .0 active ORTHO eCW3 TRI-CYCLEN 2018 {tabl TRI-CYCLEN (H udson LO 0.025 MG 12:00: et} LO 0.025 MG [place] 00 AM Health EST Care) ORTHO UNK .0 active ORTHO eCW3 TRI-CYCLEN 2019 {tabl TRI-CYCLEN (H udson LO 0.025 MG 12:00: et} LO 0.025 MG [place] 00 AM Health EST Care) ORTHO UNK .0 active ORTHO eCW3 TRI-CYCLEN 2018 {tabl TRI-CYCLEN (H udson LO 0.025 MG 12:00: et} LO 0.025 MG [place] 00 AM Health EST Care) Hydrocortis Hydroc 11/27/ APPLICAT 1 active Hyd rocortiso GLEN one 25 ortiso 2018 ION UNIT ne ([place] MG/ML ne 12:00: Anthony Topical 2.5% 00 AM Neighborho Cream [employer] EDT od Health Hydrocortis al Center) one 2.5% Cream External Cream Ibuprofen Ibupro 11/20/ UNIT active Ibuprofen GLEN 400 MG Oral fen 2016 ([place] Tablet 400MG 12:00: Anthony Ibuprofen Oral 00 AM Neighborh o 400MG Oral Tablet EDT od [facility] Tablet Center) Azithromyci Azithr 07/11/ UNIT complet Azithr omycin GLEN n 500 MG omycin 2016 ed ([place] Oral Tablet 500 MG 12:00: Josh on Azithromyci Tablet 00 AM Neigh borho n 500 MG EDT od Health Tablet Center) One Daily One 11/16/ UNIT active One Daily G REENWAY Multivitami Daily 2014 Multivitamin (Mount n/Iron Multiv 12:00: /Iron Anthony Tablet itamin 00 AM [facility] /Iron EDT od Health Tablet Center) Abilify 5MG Abilif 09/11/ UNIT active Abilify GLEN OR TABS y 5MG 2014 ([place] OR 12:00: Anthony TABS 00 AM [facility] EDT od Health Center) Clotrimazol Clotri 11/10/ APPLICAT 1 complet Cl otrimazole GLEN e 10 MG/ML mazole 2011 ION UNIT ed (Mo unt Topical 1% EX 12:00: Anthony Cream CREA 00 AM [facility] Clotrimazol EDT od Healt h e 1% EX Center) CREA Bacitracin Bacitr 11/10/ APPLICAT 1 complet Sonal itracin GLEN 0.5 UNT/MG acin 2011 ION UNIT ed (Moun t Ophthalmic 500 12:00: Anthony Ointment UNIT/G 00 AM Neighbor ho Bacitracin M OINT EDT od Heal th 500 UNIT/GM Center) OINT Bacitracin Bacitr 11/03/ APPLICAT active Baci tracin GLEN 0.5 UNT/MG acin 2011 ION UNIT (Moun t Ophthalmic 500 12:00: Anthony Ointment UNIT/G 00 AM Neighbor ho Bacitracin M OINT EDT od Heal th 500 UNIT/GM Center) OINT Bactroban Bactro 11/03/ APPLICAT 1 complet Bact roban GLEN 2% EX OINT ban 2% 2011 ION UNIT ed (Mo unt EX 12:00: Anthony OINT 00 AM Neighbor EDT od Health Center) Cephalexin Cephal 11/03/ CAPFUL 1 complet Cepha lexin GLEN 50 MG/ML exin 2011 DOSING ed ([place] Oral 250MG/ 12:00: UNIT Anthony Suspension 5ML OR 00 AM [facility] Cephalexin SUSR EDT od Health 250MG/5ML Center) OR SUSR Insurance Providers Payer name Policy type Policy ID Covered Covered Policy Plan / Coverage alliance party ID alliance party's Fournier Informati on type relationship to fournier [employer] MEDICAID COMM [id number] SP 1 [id number] PLAN SELF PAY INSURANCE [facility] Individual 0 Self 0 Employees ([place]) Policy - [facility] State Individual 0 Self 0 Employees ([place]) Policy - [facility] Aetna Choice POS [id number] S [id number] II / Aexcel Plus Dental Dentaquest [id number] S [id number] MKD Medicaid [id number] S [id number] Regular Clinic Visit Shay Vision [facility] [id number] S [id number] Dental DentaQuest [id number] S [id number] CH Bobby Care [facility] [id number] S [id number] Ironside CHP Affinity MKD [id number] S [id number] Managed Care Aetna Choice POS [id number] S [id number] II / Aexcel Plus [facility] [id number] S [id number] Options MKD [facility] Individual 0 Self 0 Plan Policy [facility] Individual 0 Self 0 Plan Policy [facility] Individual 0 Self 0 Plan Policy [facility] Individual 0 Self 0 Plan Policy [facility] Individual 0 Self 0 Plan Policy Aetna Group Policy 0 Self 0 [facility] Individual 0 Self 0 Plan Policy Aetna Group Policy 0 Self 0 [facility] Individual 0 Self 0 Plan Policy [employer] Group Policy 0 Self 0 [facility] Individual 0 Self 0 Plan Policy [employer] Group Policy 0 Self 0 [facility] Individual 0 Self 0 Plan Policy [employer] Group Policy 0 Self 0 [facility] Individual 0 Self 0 Plan Policy Aetna Group Policy 0 Self 0 Problems, Conditions, and Diagnoses Code Display Name Description Problem Type Effective Data Sour ce(s) Dates [id number] Bipolar affective Bipolar Complaint 05/17/2018 NETSMAR T (Mental disorder, affective 04:00:00 AM Health currently disorder, EDT Association of depressed, currently [place]) moderate depressed, moderate [id number] Primary insomnia Primary Problem 04/27/2018 JACKSON ([place] (disorder) Insomnia 12:00:00 AM [facility]) [id number] Primary insomnia Primary Problem 04/27/2018 JACKSON ([place] (disorder) Insomnia 12:00:00 AM [facility]) [id number] Primary insomnia Primary Problem 04/27/2018 JACKSON ([place] (disorder) Insomnia 12:00:00 AM [facility]) [id number] Primary insomnia Primary Problem 04/27/2018 JACKSON ([place] (disorder) Insomnia 12:00:00 AM [facility]) [id number] Primary insomnia Primary Problem 04/27/2018 GLEN ([place] (disorder) Insomnia 12:00:00 AM [facility]) [id number] Posttraumatic Post-traumatic Problem 01/29/2017 NAZANIN Ballesteros ([place] stress disorder Stress Disorder 12:00:00 AM Micki non (disorder) [facility]) [id number] Posttraumatic Post-traumatic Problem 01/29/2017 NAZANIN Y ([place] stress disorder Stress Disorder 12:00:00 AM Micki non (disorder) [facility]) [id number] Posttraumatic Post-traumatic Problem 01/29/2017 NAZANIN Y ([place] stress disorder Stress Disorder 12:00:00 AM Micki non (disorder) [facility]) [id number] Posttraumatic Post-traumatic Problem 01/29/2017 NAZANIN Y ([place] stress disorder Stress Disorder 12:00:00 AM Micki non (disorder) [facility]) [id number] Posttraumatic Post-traumatic Problem 01/29/2017 NAZANIN Y ([place] stress disorder Stress Disorder 12:00:00 AM Micki non (disorder) [facility]) [id number] Posttraumatic Post-traumatic Problem 01/29/2017 NAZANIN Y ([place] stress disorder Stress Disorder 12:00:00 AM Micki non (disorder) [facility]) [id number] Posttraumatic Post-traumatic Problem 01/29/2017 NAZANIN Y ([place] stress disorder Stress Disorder 12:00:00 AM Micki non (disorder) [facility]) [id number] Posttraumatic Post-traumatic Problem 01/29/2017 NAZANIN Y ([place] stress disorder Stress Disorder 12:00:00 AM Micki non (disorder) [facility]) [id number] Posttraumatic Post-traumatic Problem 01/29/2017 NAZANIN Y ([place] stress disorder Stress Disorder 12:00:00 AM Micki non (disorder) [facility]) [id number] Posttraumatic Post-traumatic Problem 01/29/2017 NAZANIN Y ([place] stress disorder Stress Disorder 12:00:00 AM Micki non (disorder) [facility]) [id number] Posttraumatic Post-traumatic Problem 01/29/2017 NAZANIN Y ([place] stress disorder Stress Disorder 12:00:00 AM Micki non (disorder) [facility]) [id number] Posttraumatic Post-traumatic Problem 01/29/2017 NAZANIN Y ([place] stress disorder Stress Disorder 12:00:00 AM Micki non (disorder) [facility]) [id number] Adjustment Adjustment Problem 11/28/2016 GLEN (Moun t disorder Disorder 12:00:00 AM Anthony (disorder) [facility]) [id number] Adjustment Adjustment Problem 11/28/2016 GLEN (Moun t disorder Disorder 12:00:00 AM Anthony (disorder) [facility]) [id number] Adjustment Adjustment Problem 11/28/2016 GLEN (Moun t disorder Disorder 12:00:00 AM Anthony (disorder) [facility]) [id number] Adjustment Adjustment Problem 11/28/2016 GLEN (Moun t disorder Disorder 12:00:00 AM Anthony (disorder) [facility]) [id number] Adjustment Adjustment Problem 11/28/2016 JACKSON (Moun t disorder Disorder 12:00:00 AM Anthony (disorder) [facility]) [id number] Adjustment Adjustment Problem 11/28/2016 JACKSON (Moun t disorder Disorder 12:00:00 AM Anthony (disorder) [facility]) [id number] Adjustment Adjustment Problem 11/28/2016 GLEN (Moun t disorder Disorder 12:00:00 AM Anthony (disorder) [facility]) [id number] Adjustment Adjustment Problem 11/28/2016 JACKSON (Moun t disorder Disorder 12:00:00 AM Anthony (disorder) [facility]) [id number] Adjustment Adjustment Problem 11/28/2016 GLEN (Moun t disorder Disorder 12:00:00 AM Anthony (disorder) [facility]) [id number] Adjustment Adjustment Problem 11/28/2016 JACKSON (Moun t disorder Disorder 12:00:00 AM Anthony (disorder) [facility]) [id number] Adjustment Adjustment Problem 11/28/2016 GLEN (Moun t disorder Disorder 12:00:00 AM Anthony (disorder) [facility]) [id number] Adjustment Adjustment Problem 11/28/2016 JACKSON (Moun t disorder Disorder 12:00:00 AM Anthony (disorder) [facility]) [id number] Bipolar disorder Bipolar Problem 09/11/2014 JACKSON ([place] (disorder) Disorder Nos 12:00:00 AM [facility]) [id number] Bipolar disorder Bipolar Problem 09/11/2014 JACKSON ([place] (disorder) [facility] [id number] Bipolar disorder Bipolar Problem 09/11/2014 JACKSON ([place] (disorder) Disorder Nos 12:00:00 AM [facility]) [id number] Bipolar disorder Bipolar Problem 09/11/2014 JACKSON ([place] (disorder) Disorder Nos 12:00:00 AM [facility]) [id number] Bipolar disorder Bipolar Problem 09/11/2014 JACKSON ([place] (disorder) Disorder Nos 12:00:00 AM [facility]) [id number] Bipolar disorder Bipolar Problem 09/11/2014 JACKSON ([place] (disorder) Disorder Nos 12:00:00 AM [facility]) [id number] Bipolar disorder Bipolar Problem 09/11/2014 JACKSON ([place] (disorder) Disorder Nos 12:00:00 AM [facility]) [id number] Bipolar disorder Bipolar Problem 09/11/2014 JACKSON ([place] (disorder) Disorder Nos 12:00:00 AM [facility]) [id number] Bipolar disorder Bipolar Problem 09/11/2014 JACKSON ([place] (disorder) Disorder Nos 12:00:00 AM [facility]) [id number] Bipolar disorder Bipolar Problem 09/11/2014 JACKSON ([place] (disorder) Disorder Nos 12:00:00 AM [facility]) [id number] Bipolar disorder Bipolar Problem 09/11/2014 JACKSON ([place] (disorder) Disorder Nos 12:00:00 AM [facility]) [id number] Bipolar disorder Bipolar Problem 09/11/2014 JACKSON ([place] (disorder) Disorder Nos 12:00:00 AM [facility]) F43.20 Adjustment Adjustment Diagnosis 04/20/2018 JACKSON (Moun t disorder, disorder, 06:31:26 PM [place] unspecified unspecified [facility]) Surgeries/Procedures Procedure Description Date Indications Data Source(s) PREGNANGY TEST BIOCEPT PREGNANGY TEST BIOCEPT 06/22/2018 JACKSON ([facility] 12:00:00 [facility]) No prior serious No prior serious 05/10/2018 TONNYNV Y ([place] illness illness 12:00:00 [facility]) Date of last Date of last 05/10/2018 JACKSON ([place] menstruation 2018 menstruation 2018 12:00:00 [facility]) PSYCHOTHERAPY 45 MINS PSYCHOTHERAPY 45 MINS 04/27/2018 JACKSON ([place] PT & OR FAMILY MEMBER PT & OR FAMILY MEMBER 12:00:00 [facility]) PSYCHOTHERAPY 45 MINS PSYCHOTHERAPY 45 MINS 02/08/2018 JACKSON ([place] PT & OR FAMILY MEMBER PT & OR FAMILY MEMBER 12:00:00 [facility]) PSYCHOTHERAPY 45 MINS PSYCHOTHERAPY 45 MINS 01/08/2018 JACKSON ([place] PT & OR FAMILY MEMBER PT & OR FAMILY MEMBER 12:00:00 [facility]) PSYCHOTHERAPY 45 MINS PSYCHOTHERAPY 45 MINS 12/25/2017 JACKSON ([place] PT & OR FAMILY MEMBER PT & OR FAMILY MEMBER 12:00:00 [facility]) PSYCHOTHERAPY 45 MINS PSYCHOTHERAPY 45 MINS 12/10/2017 JACKSON ([place] PT & OR FAMILY MEMBER PT & OR FAMILY MEMBER 12:00:00 [facility]) Not taking medication Not taking medication 11/26/2017 JACKSON ([place] 12:00:00 [facility]) PSYCHOTHERAPY 45 MINS PSYCHOTHERAPY 45 MINS 11/26/2017 JACKSON ([place] PT & OR FAMILY MEMBER PT & OR FAMILY MEMBER 12:00:00 [facility]) PSYCHOTHERAPY 45 MINS PSYCHOTHERAPY 45 MINS 05/01/2017 JACKSON ([place] PT & OR FAMILY MEMBER PT & OR FAMILY MEMBER 12:00:00 [facility]) [id number] 03/27/2017 [facility] ([place] 12:00:00 [facility]) Gluten Sensitivity Gluten Sensitivity 03/27/2017 GRE ENWAY ([facility] Screen Screen 12:00:00 [facility]) PSYCHOTHERAPY 45 MINS PSYCHOTHERAPY 45 MINS 03/27/2017 JACKSON ([place] PT & OR FAMILY MEMBER PT & OR FAMILY MEMBER 12:00:00 [facility]) 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 HEPATITIS B PED-ADOL. 02/27/2017 JACKSON ([place] 12:00:00 [facility]) VARICELLA VARICELLA 02/27/2017 JACKSON ([place] 12:00:00 [facility]) IMMUNIZATION IMMUNIZATION 02/27/2017 JACKSON ([place] ADMIN/COUNSELING <18 ADMIN/COUNSELING <18 12:00:00 [facility]) VISUAL ACUITY SCREEN VISUAL ACUITY SCREEN 02/13/2017 JACKSON ([place] 12:00:00 [facility]) INFLUENZA VACCINE >3 INFLUENZA VACCINE >3 02/06/2017 JACKSON ([place] YRS YRS 12:00:00 [facility]) PSYCHOTHERAPY 45 MINS PSYCHOTHERAPY 45 MINS 02/06/2017 JACKSON ([place] PT & OR FAMILY MEMBER PT & OR FAMILY MEMBER 12:00:00 [facility]) IMMUNIZATION IMMUNIZATION 02/06/2017 JACKSON ([place] ADMIN/COUNSELING <18 ADMIN/COUNSELING <18 12:00:00 [facility]) PSYCHOTHERAPY 45 MINS PSYCHOTHERAPY 45 MINS 01/29/2017 JACKSON ([place] PT & OR FAMILY MEMBER PT & OR FAMILY MEMBER 12:00:00 [facility]) PSYCHIATRIC DX PSYCHIATRIC DX 01/26/2017 JACKSON (M ount EVALUATION EVALUATION 12:00:00 [facility]) IMMUNIZATION IMMUNIZATION 01/09/2017 JACKSON ([place] ADMIN/COUNSELING <18 ADMIN/COUNSELING <18 12:00:00 [facility]) ADACEL (TDAP) ADACEL (TDAP) 01/09/2017 JACKSON (Mirna nt 12:00:00 [facility]) HPV VACCINE HPV VACCINE 01/09/2017 JACKSON ([facility] 12:00:00 [facility]) Meningococcal Meningococcal 01/09/2017 JACKSON (Mirna nt 12:00:00 [facility]) Seen by mental health Seen by mental health 12/03/2016 JACKSON ([facility] counselor counselor 12:00:00 [facility]) Previous psychiatric Previous psychiatric 12/03/2016 JACKSON ([facility] treatment treatment 12:00:00 Anthony AM [facility]) Previous Previous 12/03/2016 JACKSON ([facility] hospitalizations - hospitalizations - 12:00:00 [facility] several[facility] [place] AM [facility] Natalis in [place]. ~ Sarina in [facility]) ER visit when she [place]. ~ ER was 13 years old for 5 visit when she was 13 months without years old for 5 months menstruation, on without menstruation, 02/20/14. was taking on 02/20/14. was taking Risperdal 1mg 2x per Risperdal 1mg 2x per day as of 02/28/14. (0.5 day as of 02/28/14. mg, 2 tablets, two (0.5 mg, 2 tablets, times a day) two times a day) Past medical history - Past medical history 12/03/2016 JACKSON ([place] one time, Dejah did not - one time, Dejah did 12:00:00 Anthony menstruate for 5 months not menstruate for 5 AM [facility] (at age 13). Also, months (at age 13). [facility]) abnormal urinalysis and Also, abnormal blood work are noted to urinalysis and blood have been found within work are noted to have paperwork from been found within [facility] from paperwork from 2014 (scanned into this [facility] from EHR) 2014 (scanned into this EHR) Mental illness Mental illness 12/03/2016 JACKSON (M ount 12:00:00 Anthony [facility]) Not using contraception Not using 07/15/2016 GREE NWESTEBAN ([facility] contraception 12:00:00 Anthony AM [facility]) 0 0 07/15/2016 JACKSON ([place] 12:00:00 Anthony AM [facility]) LMP: 05/17/2016 LMP: 05/17/2016 06/24/2016 JACKSON (M ount 12:00:00 Anthony [facility]) History of History of 06/24/2016 JACKSON ([facility] vulvovaginitis vulvovaginitis 12:00:00 Anthony chlamydia chlamydia AM [facility]) Secondhand tobacco Secondhand tobacco 06/19/2016 GRE ENWAY ([facility] smoke in home both smoke in home both 12:00:00 V zulmaon parents [facility]) Reviewed medication Reviewed medication 06/19/2016 Slim RUIZMORGAN ([facility] history history 12:00:00 [facility]) Serious weight loss Serious weight loss 09/11/2014 G JOVIWAY ([facility] attempts attempts 12:00:00 [facility]) Not taking vitamin Not taking vitamin 09/11/2014 GRE ENWAY ([facility] supplements supplements 12:00:00 [facility]) No allergies No allergies 09/11/2014 GLEN ([facility] 12:00:00 [facility]) No prior surgery No prior surgery 09/11/2014 GREENWA Y ([facility] 12:00:00 [facility]) Taking antibiotics Taking antibiotics 11/11/2011 GRE ENWAY ([facility] 12:00:00 [facility]) Taking OTC medications Taking OTC medications 11/04/2011 GLEN ([facility] bacitracin bacitracin 12:00:00 [facility]) No exposure to a No exposure to a 11/04/2011 GREENWA Y ([facility] contagious disease contagious disease 12:00:[address] [facility]) Results ID Date Data Source [id number] 06/22/2018 01:33:23 PM EDT GREENWA Y (Jermyn [id number] [facility]) Name Value Range Interpretation Description Data Source(s ) Supporting Code Document(s ) No Results No Results No Results GLEN ([facility] Recorded For Anthony Specified [facility]) ID Date Data Source [id number] 06/22/2018 12:00:00 AM EDT GLEN (Mirna nt [facility]) Name Value Range Interpretation Description Data Source(s ) Supporting Code Document(s ) Bacteria No growth Result 1 GLEN identified in (Jermyn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
--- NOTE | 2019-11-06 22:35 | PDOC ---
History of Present Illness - General Chief Complaint: Urinary Problem Stated Complaint: URINARY PROBLEM Time Seen by Provider: 11/06/19 22:34 History Source: Patient, Old Records Exam Limitations: No Limitations - History of Present Illness Initial Comments: 11/06/19 22:34 Dejah Chance is a 19F with PMH UTI presenting with dysuria. Patient diagnosed with UTI a month ago but did not have any symptoms and did not start taking antibiotics. Filled prescription this week, started on Macrobid 4 days ago, has been taking each day but today has dysuria that she did not have prior. Also has some suprapubic tenderness and R>L back pain. Denies vaginal discharge or bleeding. LMP unknown, has amenorrhea chronically, describes weight loss as well, does not exercise. Denies fever, nausea, vomiting, diarrhea, chest pain, SOB, dizziness. Eating and drinking without issues. Last sexual encounter with known male partner 3 weeks ago, unprotected penetrative sex, low concern for STI but has had chlamydia in the past. No abdominal surgeries. Past History - Medical History Allergies/Adverse Reactions: Allergies Allergy/AdvReac Type Severity Reaction Status Date / Time No Known Allergies Allergy Verified 04/24/19 22:08 Home Medications: Ambulatory Orders Mag Hydrox/Aluminum Hyd/Simeth [Maalox Advanced Suspension] 355 ml PO Q6H PRN #1 bottle 04/22/19 Vit No.138/Folic/Dha [Alive Gummy] 1 each PO DAILY #30 tab.chew 04/22/19 Simethicone Liquid [Mylicon Liquid -] 40 mg PO QID #150 ml 04/22/19 Levofloxacin 750 mg PO DAILY 7 Days #7 tablet 11/06/19 COPD: No DVT: No - Surgical History Cholecystectomy: No Neurologic Surgery: No - Reproductive History Is Patient Now?: No - Immunization History Immunization Up to Date: Yes - Psycho-Social/Smoking History Smoking History: Never smoked Have you smoked in the past 12 months: No Number of Cigarettes Smoked Daily: 0 Cigars Per Day: 0 - Substance Abuse Hx (Audit-C & DAST Scrn) How often the patient has a drink containing alcohol: Never Score: In Men: 4 or > Positive; In Women: 3 or > Positive: 0 Screen Result (Pos requires Nsg. Audit-10AR): Negative Review of Systems - Review of Systems Able to Perform ROS?: Yes Constitutional: No: Symptoms Reported HEENTM: No: Symptoms Reported Respiratory: No: Symptoms reported Cardiac (ROS): No: Symptoms Reported ABD/GI: No: Symptoms Reported : Yes: Dysuria, Flank Pain. No: Discharge, Frequency Musculoskeletal: No: Symptoms Reported Integumentary: No: Symptoms Reported Neurological: No: Symptoms reported Endocrine: No: Symptoms Reported Hematologic/Lymphatic: No: Symptoms Reported All Other Systems: Reviewed and Negative *Physical Exam - Vital Signs Last Vital Signs Temp Pulse Resp BP Pulse Ox 98.8 F 93 H 20 129/72 99 11/06/19 22:23 11/06/19 22:23 11/06/19 22:23 11/06/19 22:23 11/06/19 22:23 - Physical Exam General Appearance: Yes: Nourished, Other (resting in bed in NAD, gait normal). No: Appropriately Dressed, Apparent Distress HEENT: positive: EOMI, LEWIS, Normal Voice, Symmetrical, Pharynx Normal. negative: Scleral Icterus (R), Scleral Icterus (L), Muffled/Hoarse voice, Pharyngeal Erythema, Tonsillar Exudate, Tonsillar Erythema Neck: positive: Normal Thyroid, Supple. negative: Tender, Rigid, Lymphadenopathy (R), Lymphadenopathy (L), Tender lateral, Tender midline Respiratory/Chest: positive: Lungs Clear, Normal Breath Sounds. negative: Chest Tender, Respiratory Distress, Accessory Muscle Use, Crackles, Rales, Rhonchi, Wheezing Cardiovascular: positive: Regular Rhythm, Regular Rate. negative: Murmur Gastrointestinal/Abdominal: positive: Normal Bowel Sounds, Soft, Protuberent. negative: Tender, Organomegaly, Pulsatile Mass, Guarding, Rebound Musculoskeletal: positive: Normal Inspection, CVA Tenderness (R). negative: Decreased Range of Motion Extremity: positive: Normal Capillary Refill, Normal Inspection, Normal Range of Motion, Pelvis Stable. negative: Tender, Pedal Edema, Swelling, Calf Tenderness Integumentary: positive: Normal Color, Dry, Warm Neurologic: positive: Fully Oriented, Alert, Normal Mood/Affect, Normal Response Medical Decision Making - Medical Decision Making 11/06/19 23:10 Patient presents with dysuria after one month of UTI diagnosis but has only completed 4 days of Macrobid, denies F/C/N/V but now has back pain, also has had unprotected sex in the last few weeks. Concerned for UTI into pyelo. Sending CBC/CMP + UA/UC/Upreg/GC for evaluation of dysuria. Urine appears clear bright yellow but grossly cloudy with white sediment. Will need stronger Abx than Macrobid for treatment, giving levofloxacin 750mg QD for 7 days if urine consistent with UTI/pyelo. 11/06/19 23:34 Labs notable for: - UA +LE/blood, >5000 bacteria and >700 WBC, highly consistent with UTI. 11/06/19 23:42 Signed out to night team, plan to f/u blood labs and give Abx, can likely be d/c home with Levaquin and PMD f/u. Discharge - Discharge Information Problems reviewed: Yes Clinical Impression/Diagnosis: Dysuria Condition: Stable - Additional Discharge Information Prescriptions: Levofloxacin 750 mg PO DAILY 7 Days #7 tablet - Follow up/Referral Referrals: [facility] [place] [Provider Group] - Patient Discharge Instructions Patient Printed Discharge Instructions: DI for Urinary Tract Infection (UTI) Additional Instructions: Today you were evaluated for burning with urination. Your urine shows that you have a urinary tract infection, and that the antibiotics you are taking are not enough. We are sending you home with Please take them every day as prescribed without missing a dose. You need to make an appointment with a primary doctor for follow-up of your infection and your decreased menstrual periods. A referral has been given. At home, stay hydrated and eat a balanced diet. If you experience worsening abdominal pain or burning with urination, fever, chills, nausea, vomiting, or any other new or concerning symptoms, please return to the emergency room. - Post Discharge Activity
[2019-11-06 23:21] LABS: EPI CELLS 25 /uL (0-25.1); HYALINE CASTS 5 /uL (0-3.1); PH,URINE 7.5 (5.0-8.0); URINE APPEARANCE TURBID; URINE BACTERIA 5564 /uL (0-1359); URINE BILIRUBIN NEGATIVE (NEGATIVE); URINE COLOR YELLOW; URINE GLUCOSE (UA) NEGATIVE (NEGATIVE); URINE KETONE NEGATIVE (NEGATIVE); URINE LEUK ESTERASE 1+ (NEGATIVE); URINE NITRITE NEGATIVE (NEGATIVE); URINE PROTEIN TRACE (NEGATIVE); URINE WBC 772 /uL (0-25.8)
[2019-11-06 23:44] LABS: URINE RBC 225.5 /uL (0-23.9)
[2019-11-06 23:45] LABS: YEAST SEEN (NEGATIVE)
[2019-11-06 23:49] LABS: BASO % 0.2 % (0-2.0); EOS % 0.5 % (0-4.5); HEMATOCRIT 42.5 % (32.4-45.2); HEMOGLOBIN 14.4 GM/dL (10.7-15.3); LYMPH % 25.8 % (8-40); MCH 31.7 pg (25.7-33.7); MCHC 33.9 g/dl (32.0-36.0); MEAN CELL VOLUME 93.6 fl (80-96); MEAN PLT VOLUME 9.5 fl (7.5-11.1); MONO % 7.4 % (3.8-10.2); NEUT % 66.1 % (42.8-82.8); PLATELET COUNT 176 K/MM3 (134-434); RBC 4.54 M/mm3 (3.60-5.2); RDW 13.6 % (11.6-15.6); WHITE BLOOD COUNT 9.6 K/mm3 (4.0-10.0)
--- NOTE | 2019-11-07 00:28 | PDOC ---
Documentation entered by Tika Sanchez SCRIBE, acting as scribe for Seema Schaefer MD. Seema Schaefer MD: This documentation has been prepared by the Daniel davila Sydney, SCRIBE, under my direction and personally reviewed by me in its entirety. I confirm that the documentation accurately reflects all work, treatment, procedures, and medical decision making performed by me. Attending Attestation - Resident Resident Name: ChristaLeandro - ED Attending Attestation I have performed the following: I have examined & evaluated the patient, The case was reviewed & discussed with the resident, I agree w/resident's findings & plan, Exceptions are as noted - HPI HPI: 11/06/19 23:19 Patient is a year old 19 female with a significant past medical history of UTIs who presents to the ED with one day of dysuria. As per patient, she was diagnosed with UTI one month ago, but did not have any symptoms or take any antibiotics. Patient endorses filling the prescription this week, starting the medication 4 days ago, taking it everyday, when she noticed dysuria today. She also notes some back pain, worse on her right, and suprapubic pain. Denies headache, fever, chills, shortness of breath, chest pain, abdominal pain, nausea, vomiting, or diarrhea. Allergies: NKDA PCP: Dr. Sanchez - Physicial Exam PE: 11/07/19 00:28 AGREE WITH RESIDENT EXAM - Medical Decision Making 11/07/19 06:38 Home with meds. 11/07/19 06:38 CBC chem normal UA shows UTI Discharge - Discharge Information Problems reviewed: Yes Clinical Impression/Diagnosis: Dysuria Condition: Stable - Additional Discharge Information Prescriptions: Levofloxacin 750 mg PO DAILY 7 Days #7 tablet - Follow up/Referral Referrals: [facility] [place] [facility] [place] [Provider Group] - Patient Discharge Instructions Patient Printed Discharge Instructions: DI for Urinary Tract Infection (UTI) Additional Instructions: Today you were evaluated for burning with urination. Your urine shows that you have a urinary tract infection, and that the antibiotics you are taking are not enough. We are sending you home with Please take them every day as prescribed without missing a dose. You need to make an appointment with a primary doctor for follow-up of your infection and your decreased menstrual periods. A referral has been given. At home, stay hydrated and eat a balanced diet. If you experience worsening abdominal pain or burning with urination, fever, chills, nausea, vomiting, or any other new or concerning symptoms, please return to the emergency room. - Post Discharge Activity
[2019-11-07] MEDS ORDERED: CEFTRIAXONE 1 GM in DEXTROSE 5%-WATER - 50 ML IVPB ONE (00:30)
[2019-11-07] MEDS ORDERED: CEPHALEXIN MONOHYDRATE 500 MG CAPSULE (UD) PO ONE (00:30)
[2019-11-07] MEDS ORDERED: CEPHALEXIN MONOHYDRATE 500 MG CAPSULE (UD) ONE (00:31)
[2019-11-07 00:38] LABS: ALBUMIN 4.7 g/dl (3.4-5.0); BILIRUBIN,TOTAL 0.3 mg/dL (0.2-1); BLOOD UREA NITROGEN 13.1 mg/dL (7-18); CALCIUM 8.9 mg/dL (8.5-10.1); CREATININE 0.8 mg/dL (0.55-1.3); TOT PROT 9.1 g/dl (6.4-8.2)
== END 2019-11-07 00:56 | disposition home or self-care (01) ==
LOC: JER 22:17
DX: R30.0 Dysuria (principal)
CPT/HCPCS: 36415; 80053; 81003; 84703; 85025; 87086; 87186; 87491; 87591; 99283-25

== ENCOUNTER 2020-05-11 12:11 | Emergency (ER) | payer OTHER ==
[2020-05-11 12:45] VITALS: BP 132/77; PULSE 81; TEMP 99.6; BMI 27.2
== END 2020-05-11 13:18 | disposition home or self-care (01) ==
LOC: JER 12:11
DX: R09.81 Nasal congestion (principal); Z11.52 Encounter for screening for COVID-19
CPT/HCPCS: 99283-25; C9803; U0003; U0005

== ENCOUNTER 2021-02-08 03:51 | Emergency (ER) | payer OTHER ==
[2021-02-08 03:57] VITALS: BMI 24.1
[2021-02-08 05:44] LABS: BASO % 0.3 % (0-2.0); EOS % 0.4 % (0-4.5); HEMATOCRIT 38.2 % (32.4-45.2); HEMOGLOBIN 12.9 GM/dL (10.7-15.3); LYMPH % 25.4 % (8-40); MCH 30.8 pg (25.7-33.7); MCHC 33.7 g/dl (32.0-36.0); MEAN CELL VOLUME 91.5 fl (80-96); MEAN PLT VOLUME 8.9 fl (7.5-11.1); MONO % 6.9 % (3.8-10.2); PLATELET COUNT 203 10^3/uL (134-434); RBC 4.18 M/mm3 (3.60-5.2); RDW 12.7 % (11.6-15.6); WHITE BLOOD COUNT 6.9 K/mm3 (4.0-10.0)
[2021-02-08 06:02] LABS: CALCIUM 8.6 mg/dL (8.5-10.1)
[2021-02-08 06:03] LABS: BLOOD UREA NITROGEN 11.1 mg/dL (7-18)
[2021-02-08 06:05] LABS: CREATININE 0.7 mg/dL (0.55-1.3)
[2021-02-08 06:07] LABS: BILIRUBIN,TOTAL 0.4 mg/dL (0.2-1); TOT PROT 7.7 g/dl (6.4-8.2)
[2021-02-08 07:06] LABS: URINE APPEARANCE TURBID; URINE COLOR RED
[2021-02-08 07:07] LABS: HCG,QUALITATIVE URINE Negative
[2021-02-08 07:09] LABS: EPI CELLS FEW /uL (0-25.1); URINE BACTERIA 2+ /uL (0-1359); URINE RBC >100 /uL (0-23.9)
[2021-02-08] MEDS ORDERED: ACETAMINOPHEN 325 MG TABLET (FP) PO ONE (08:32)
[2021-02-08] MEDS ORDERED: ACETAMINOPHEN 325 MG TABLET (FP) ONE (08:56)
[2021-02-08 08:57] VITALS: BP 112/66; PULSE 81; TEMP 98.5
[2021-02-08 09:27] LABS: EPI CELLS >36 /uL (0-25.1); HYALINE CASTS 3 /uL (0-3.1); PH,URINE 6.5 (5.0-8.0); URINE APPEARANCE CLOUDY; URINE BACTERIA 227 /uL (0-1359); URINE BILIRUBIN NEGATIVE (NEGATIVE); URINE COLOR YELLOW; URINE GLUCOSE (UA) NEGATIVE (NEGATIVE); URINE KETONE NEGATIVE (NEGATIVE); URINE LEUK ESTERASE NEGATIVE (NEGATIVE); URINE NITRITE NEGATIVE (NEGATIVE); URINE PROTEIN TRACE (NEGATIVE); URINE RBC 1548 /uL (0-23.9); URINE WBC 30 /uL (0-25.8)
== END 2021-02-08 10:19 | disposition home or self-care (01) ==
LOC: JER 03:51
DX: R10.30 Lower abdominal pain, unspecified (principal)
CPT/HCPCS: 36415; 76830-TC; 80053; 81003; 84703; 85025; 87086; 99284-25

== ENCOUNTER 2021-05-16 01:28 | Emergency (ER) | payer OTHER ==
[2021-05-16 01:45] VITALS: BP 104/79; TEMP 99.9; BMI 25.6
[2021-05-16 02:21] LABS: BASO % 0.3 % (0-2.0); EOS % 0.2 % (0-4.5); HEMATOCRIT 36.4 % (32.4-45.2); HEMOGLOBIN 12.8 GM/dL (10.7-15.3); LYMPH % 47.8 % (8-40); MCH 31.2 pg (25.7-33.7); MCHC 35.1 g/dl (32.0-36.0); MEAN CELL VOLUME 88.9 fl (80-96); MEAN PLT VOLUME 7.9 fl (7.5-11.1); MONO % 18.8 % (3.8-10.2); NEUT % 32.9 % (42.8-82.8); PLATELET COUNT 194 10^3/uL (134-434); RBC 4.09 M/mm3 (3.60-5.2); RDW 12.8 % (11.6-15.6); WHITE BLOOD COUNT 2.7 K/mm3 (4.0-10.0)
[2021-05-16 02:48] LABS: ALBUMIN 3.7 g/dl (3.4-5.0); BILIRUBIN,TOTAL 0.2 mg/dL (0.2-1); BLOOD UREA NITROGEN 13.2 mg/dL (7-18); CALCIUM 8.4 mg/dL (8.5-10.1); CREATININE 0.8 mg/dL (0.55-1.3); TOT PROT 7.8 g/dl (6.4-8.2)
[2021-05-16 04:02] VITALS: PULSE 88
[2021-05-17 15:07] LABS: SARS-CoV-2 NAA Not Detected (Not Detected)
== END 2021-05-16 04:04 | disposition home or self-care (01) ==
LOC: JER 01:28
DX: J20.9 Acute bronchitis, unspecified (principal)
CPT/HCPCS: 36415; 71275-TC; 80053; 84703; 85025; 85379; 87804; 93005; 93010; 99285-25; C9803-CS; U0003; U0005

== ENCOUNTER 2021-10-12 21:19 | Emergency (ER) | payer OTHER ==
[2021-10-12 21:29] VITALS: BP 121/82; PULSE 81; RESP 18; TEMP 98.3; BMI 23.8
[2021-10-12] MEDS ORDERED: ACETAMINOPHEN 325 MG TABLET (FP) PO ONE (22:51)
[2021-10-12] MEDS ORDERED: ACETAMINOPHEN 325 MG TABLET (FP) ONE (22:54)
== END 2021-10-13 01:22 | disposition home or self-care (01) ==
LOC: JER 21:19
DX: O26.899 Other specified pregnancy related conditions, unspecified trimester (principal)
CPT/HCPCS: 76817-TC; 84703; 99284-25

== ENCOUNTER 2021-10-26 05:49 | Emergency (ER) | payer OTHER ==
[2021-10-26 05:56] VITALS: RESP 18; TEMP 98; BMI 28.0
[2021-10-26 06:51] LABS: BASO % 0.2 % (0-2.0); EOS % 0.8 % (0-4.5); HEMATOCRIT 37.1 % (32.4-45.2); HEMOGLOBIN 12.4 GM/dL (10.7-15.3); LYMPH % 30.6 % (8-40); MCH 30.9 pg (25.7-33.7); MCHC 33.5 g/dl (32.0-36.0); MEAN CELL VOLUME 92.1 fl (80-96); MEAN PLT VOLUME 9.3 fl (7.5-11.1); MONO % 8.7 % (3.8-10.2); NEUT % 59.7 % (42.8-82.8); PLATELET COUNT 190 10^3/uL (134-434); RBC 4.03 M/mm3 (3.60-5.2); RDW 13.7 % (11.6-15.6); WHITE BLOOD COUNT 8.4 K/mm3 (4.0-10.0)
[2021-10-26 06:56] LABS: ALBUMIN 3.5 g/dl (3.4-5.0); BLOOD UREA NITROGEN 13.3 mg/dL (7-18); CALCIUM 8.2 mg/dL (8.5-10.1)
[2021-10-26 06:59] LABS: CREATININE 0.5 mg/dL (0.55-1.3)
[2021-10-26 07:01] LABS: BILIRUBIN,TOTAL 0.3 mg/dL (0.2-1); TOT PROT 7.1 g/dl (6.4-8.2)
[2021-10-26] MEDS ORDERED: ONDANSETRON 4 MG/2 ML VIAL IVPUSH ONE (09:44)
[2021-10-26] MEDS ORDERED: SODIUM CHLORIDE 1,000 ML IV STA (09:44)
[2021-10-26] MEDS ORDERED: ACETAMINOPHEN 1000 MG/100 ML BAG IVPB ONE (09:44)
[2021-10-26] MEDS ORDERED: ACETAMINOPHEN INJECTION 100 ML IVPB ONE (10:07)
[2021-10-26] MEDS ORDERED: ONDANSETRON 4 MG/2 ML VIAL ONE (10:07)
[2021-10-26 10:08] VITALS: BP 148/87; PULSE 103
== END 2021-10-26 11:24 | disposition home or self-care (01) ==
LOC: JER 05:49
PROC: 3E0333Z Introduction of Anti-inflammatory into Peripheral Vein, Percutaneous Approach (ICD-10-PCS; principal; 2021-10-26)
PROC: 3E033GC Introduction of Other Therapeutic Substance into Peripheral Vein, Percutaneous Approach (ICD-10-PCS; 2021-10-26)
PROC: 3E0337Z Introduction of Electrolytic and Water Balance Substance into Peripheral Vein, Percutaneous Approach (ICD-10-PCS; 2021-10-26)
DX: O02.1 Missed abortion (principal)
CPT/HCPCS: 36415; 76817-TC; 80053; 84702; 85025; 99284-25

== ENCOUNTER 2023-04-29 15:25 | Emergency (ER) | payer OTHER ==
[2023-04-29 15:33] VITALS: BP 116/78; PULSE 90; RESP 16; TEMP 98.3; BMI 27.4
[2023-04-29] MEDS ORDERED: ACETAMINOPHEN 500 MG TABLET (FP) ONE (16:11)
[2023-04-29] MEDS: ACETAMINOPHEN 500 MG TABLET (FP) PO ONE (16:20)
[2023-04-29 16:25] LABS: EPI CELLS >36 /uL (0-25.1); HYALINE CASTS 1 /uL (0-3.1); PH,URINE 5.5 (5.0-8.0); URINE APPEARANCE CLOUDY; URINE BACTERIA >9,000 /uL (0-1359); URINE BILIRUBIN NEGATIVE (NEGATIVE); URINE COLOR DK YELLOW; URINE GLUCOSE (UA) NEGATIVE (NEGATIVE); URINE KETONE 1+ (NEGATIVE); URINE LEUK ESTERASE 2+ (NEGATIVE); URINE NITRITE POSITIVE (NEGATIVE); URINE PROTEIN 1+ (NEGATIVE); URINE RBC 81 /uL (0-23.9); URINE WBC 2072 /uL (0-25.8)
[2023-04-29 16:26] LABS: HCG,QUALITATIVE URINE Negative
[2023-04-29] MEDS ORDERED: NITROFURANTOIN MACROCRYSTAL 50 MG CAPSULE (FP) ONE (16:56)
[2023-04-29] MEDS: NITROFURANTOIN MONOHYD/M-CRYST 100 MG CAPSULE PO ONE (16:59)
== END 2023-04-29 16:59 | disposition home or self-care (01) ==
LOC: JERFT 15:25
DX: M54.9 Dorsalgia, unspecified (principal); H92.03 Otalgia, bilateral; R09.81 Nasal congestion; N39.0 Urinary tract infection, site not specified; B34.9 Viral infection, unspecified; Z20.822 Contact with and (suspected) exposure to COVID-19
CPT/HCPCS: 0241U-QW; 81003; 84703; 87086; 87186; 99283-25

== ENCOUNTER 2023-05-26 18:17 | Emergency (ER) | payer OTHER ==
[2023-05-26 18:36] VITALS: BP 135/76; PULSE 110; RESP 18; TEMP 98; BMI 28.3
[2023-05-26] MEDS ORDERED: DEXAMETHASONE SOD PHOSPHATE 10 MG/1 ML VIAL ONE (19:34)
[2023-05-26] MEDS: DEXAMETHASONE SOD PHOSPHATE 10 MG/1 ML VIAL IM ONE (19:59)
== END 2023-05-26 20:44 | disposition home or self-care (01) ==
LOC: JERFT 18:17
DX: R21 Rash and other nonspecific skin eruption (principal); L29.9 Pruritus, unspecified; B35.6 Tinea cruris
CPT/HCPCS: 84703; 99283-25

== ENCOUNTER 2023-07-04 00:34 | Emergency (ER) | payer OTHER ==
[2023-07-04 00:58] VITALS: RESP 18; BMI 26.6
[2023-07-04 01:46] LABS: BASO % 0.3 % (0-2.0); EOS % 1.1 % (0-4.5); HEMATOCRIT 38.3 % (32.4-45.2); LYMPH % 32.3 % (8-40); MCH 30.8 pg (25.7-33.7); MEAN CELL VOLUME 90.7 fl (80-96); NEUT % 58.3 % (42.8-82.8); PLATELET COUNT 194 10^3/uL (134-434); RBC 4.22 M/mm3 (3.60-5.2); RDW 13.5 % (11.6-15.6); WHITE BLOOD COUNT 7.1 K/mm3 (4.0-10.0)
[2023-07-04 02:05] LABS: POTASSIUM 4.1 mmol/L (3.5-5.1)
[2023-07-04 02:07] LABS: ALBUMIN 3.7 g/dl (3.4-5.0); BLOOD UREA NITROGEN 7.7 mg/dL (7-18); CALCIUM 8.4 mg/dL (8.5-10.1)
[2023-07-04 02:10] LABS: CREATININE 0.7 mg/dL (0.55-1.3)
[2023-07-04 02:12] LABS: BILIRUBIN,TOTAL 0.2 mg/dL (0.2-1); TOT PROT 7.3 g/dl (6.4-8.2)
[2023-07-04] MEDS: LACTATED RINGERS SOLUTION 1000 ML INFUS.BAG IV ONE (03:50)
[2023-07-04] MEDS ORDERED: ONDANSETRON 4 MG/2 ML VIAL ONE (03:51)
[2023-07-04] MEDS ORDERED: ACETAMINOPHEN INJECTION 100 ML IVPB ONE (03:51)
[2023-07-04] MEDS: ACETAMINOPHEN 1000 MG/100 ML BAG IVPB ONE (04:00)
[2023-07-04] MEDS: ONDANSETRON 4 MG/2 ML VIAL IVPUSH ONE (04:00)
[2023-07-04 04:42] LABS: EPI CELLS >36 /uL (0-25.1); HYALINE CASTS 38 /uL (0-3.1); PH,URINE 5.5 (5.0-8.0); URINE APPEARANCE TURBID; URINE BACTERIA 2395 /uL (0-1359); URINE BILIRUBIN NEGATIVE (NEGATIVE); URINE COLOR YELLOW; URINE GLUCOSE (UA) NEGATIVE (NEGATIVE); URINE KETONE TRACE (NEGATIVE); URINE LEUK ESTERASE 2+ (NEGATIVE); URINE NITRITE NEGATIVE (NEGATIVE); URINE PROTEIN TRACE (NEGATIVE); URINE RBC 22 /uL (0-23.9); URINE WBC 770 /uL (0-25.8)
[2023-07-04 04:43] LABS: HCG,QUALITATIVE URINE Negative
[2023-07-04] MEDS ORDERED: CEFTRIAXONE 1 GM/50 ML BAG ONE (05:00)
[2023-07-04] MEDS: CEFTRIAXONE 1 GM in DEXTROSE 5%-WATER - 50 ML IVPB ONE (05:08)
[2023-07-04 05:33] VITALS: BP 113/54; PULSE 80; TEMP 97.5
== END 2023-07-04 05:59 | disposition home or self-care (01) ==
LOC: JER 00:34
PROC: 3E03329 Introduction of Other Anti-infective into Peripheral Vein, Percutaneous Approach (ICD-10-PCS; principal; 2023-07-04)
PROC: 3E033NZ Introduction of Analgesics, Hypnotics, Sedatives into Peripheral Vein, Percutaneous Approach (ICD-10-PCS; 2023-07-04)
PROC: 3E033GC Introduction of Other Therapeutic Substance into Peripheral Vein, Percutaneous Approach (ICD-10-PCS; 2023-07-04)
DX: R10.30 Lower abdominal pain, unspecified (principal); R11.2 Nausea with vomiting, unspecified; R51.9 Headache, unspecified; R42 Dizziness and giddiness; N30.90 Cystitis, unspecified without hematuria
CPT/HCPCS: 36415; 80053; 81003; 84703; 85025; 87086; 99284-25; J0131

== ENCOUNTER 2023-07-22 08:38 | Emergency (ER) | payer OTHER ==
[2023-07-22 09:02] VITALS: TEMP 98; BMI 27.4
[2023-07-22] MEDS: methylPREDNISolone NA SUCC 125 MG/2 ML VIAL IVPUSH ONE (09:19)
[2023-07-22] MEDS: ALBUTEROL SO4 2.5/IPRATROPIUM 0.5 INH SOL 3 ML VIAL.NEB. NEB ONE (09:19)
[2023-07-22] MEDS: MAGNESIUM SULF 50% (8.12 MEQ/2 ML-1 GM VIAL) IVPB ONE (09:19)
[2023-07-22 09:33] LABS: BASO % 0.2 % (0-2.0); EOS % 1.3 % (0-4.5); HEMATOCRIT 40.5 % (32.4-45.2); HEMOGLOBIN 13.7 GM/dL (10.7-15.3); LYMPH % 41.4 % (8-40); MCH 30.6 pg (25.7-33.7); MCHC 33.9 g/dl (32.0-36.0); MEAN PLT VOLUME 9.7 fl (7.5-11.1); MONO % 6.8 % (3.8-10.2); NEUT % 50.3 % (42.8-82.8); PLATELET COUNT 169 10^3/uL (134-434); WHITE BLOOD COUNT 5.3 K/mm3 (4.0-10.0)
[2023-07-22 09:51] LABS: POTASSIUM 3.7 mmol/L (3.5-5.1)
[2023-07-22 09:54] LABS: BLOOD UREA NITROGEN 7.3 mg/dL (7-18)
[2023-07-22 09:55] LABS: ALBUMIN 4.5 g/dl (3.4-5.0)
[2023-07-22 09:58] LABS: CREATININE 0.8 mg/dL (0.55-1.3)
[2023-07-22 09:59] LABS: BILIRUBIN,TOTAL 0.4 mg/dL (0.2-1); TOT PROT 8.6 g/dl (6.4-8.2)
[2023-07-22 10:16] VITALS: BP 112/71; PULSE 76; RESP 18
[2023-07-22] MEDS ORDERED: ALBUTEROL SO4 2.5/IPRATROPIUM 0.5 INH SOL 3 ML VIAL.NEB. NEB ONE (10:23)
[2023-07-22] MEDS: ALBUTEROL SO4 0.083% IH SOL 2.5 MG/3 ML VIAL.NEB. NEB ONE (10:31)
[2023-07-22] MEDS ORDERED: ALBUTEROL SO4 0.083% IH SOL 2.5 MG/3 ML VIAL.NEB. NEB ONE (10:31)
== END 2023-07-22 11:23 | disposition home or self-care (01) ==
LOC: JER 08:38
PROC: 3E033NZ Introduction of Analgesics, Hypnotics, Sedatives into Peripheral Vein, Percutaneous Approach (ICD-10-PCS; principal; 2023-07-22)
PROC: 3E033GC Introduction of Other Therapeutic Substance into Peripheral Vein, Percutaneous Approach (ICD-10-PCS; 2023-07-22)
PROC: 3E0F7GC Introduction of Other Therapeutic Substance into Respiratory Tract, Via Natural or Artificial Opening (ICD-10-PCS; 2023-07-22)
PROC: 3E0F7GC Introduction of Other Therapeutic Substance into Respiratory Tract, Via Natural or Artificial Opening (ICD-10-PCS; 2023-07-22)
DX: R06.02 Shortness of breath (principal); R05.9 Cough, unspecified; R09.81 Nasal congestion; J45.21 Mild intermittent asthma with (acute) exacerbation; Z20.822 Contact with and (suspected) exposure to COVID-19
CPT/HCPCS: 0241U-QW; 36415; 80053; 84703; 85025; 93005; 93010; 99284-25

== ENCOUNTER 2023-10-21 15:56 | Emergency (ER) | payer OTHER ==
[2023-10-21 16:04] VITALS: TEMP 98; BMI 27.4
[2023-10-21] MEDS ORDERED: KETOROLAC TROMETHAMINE 30 MG/1 ML VIAL ONE (20:20)
[2023-10-21] MEDS: KETOROLAC TROMETHAMINE 30 MG/1 ML VIAL IM ONE (20:25)
[2023-10-21] MEDS ORDERED: AMOX TR/POT CLAV 875MG/125MG TABLETS (FP) ONE (20:39)
[2023-10-21] MEDS ORDERED: ACETAMINOPHEN 325 MG TABLET (FP) ONE (20:39)
[2023-10-21] MEDS: AMOX TR/POT CLAV 875MG/125MG TABLETS (FP) PO ONE (20:43)
[2023-10-21] MEDS: ACETAMINOPHEN 500 MG TABLET (FP) PO ONE (20:43)
[2023-10-21 22:05] VITALS: BP 127/82; PULSE 84; RESP 16
== END 2023-10-21 23:13 | disposition home or self-care (01) ==
LOC: JER 15:56 → JERFT 15:56 → JER 23:13
PROC: 3E0133Z Introduction of Anti-inflammatory into Subcutaneous Tissue, Percutaneous Approach (ICD-10-PCS; principal; 2023-10-21)
DX: N76.0 Acute vaginitis (principal); K08.89 Other specified disorders of teeth and supporting structures; G89.29 Other chronic pain
CPT/HCPCS: 99284-25

== ENCOUNTER 2023-10-29 22:18 | Emergency (ER) | payer OTHER ==
[2023-10-29 22:26] VITALS: BMI 27.4
[2023-10-29] MEDS ORDERED: DEXAMETHASONE SOD PHOSPHATE 10 MG/1 ML VIAL ONE (22:33)
[2023-10-29] MEDS: ALBUTEROL SO4 2.5/IPRATROPIUM 0.5 INH SOL 3 ML VIAL.NEB. NEB ONE (22:33)
[2023-10-29] MEDS: DEXAMETHASONE SOD PHOSPHATE 10 MG/1 ML VIAL IM ONE (22:37)
[2023-10-29 22:56] LABS: BASO % 0.7 % (0-2.0); EOS % 0.5 % (0-4.5); HEMATOCRIT 36.6 % (32.4-45.2); HEMOGLOBIN 12.3 GM/dL (10.7-15.3); LYMPH % 40.6 % (8-40); MCH 30.7 pg (25.7-33.7); MCHC 33.7 g/dl (32.0-36.0); MEAN CELL VOLUME 91.1 fl (80-96); MEAN PLT VOLUME 9.3 fl (7.5-11.1); MONO % 7.9 % (3.8-10.2); NEUT % 50.3 % (42.8-82.8); PLATELET COUNT 235 10^3/uL (134-434); RBC 4.01 M/mm3 (3.60-5.2); RDW 13.3 % (11.6-15.6); WHITE BLOOD COUNT 9.7 K/mm3 (4.0-10.0)
[2023-10-29 23:18] LABS: POTASSIUM 3.5 mmol/L (3.5-5.1)
[2023-10-29 23:20] LABS: CALCIUM 9.3 mg/dL (8.5-10.1)
[2023-10-29 23:21] LABS: ALBUMIN 4.3 g/dl (3.4-5.0); MAGNESIUM 2.2 mg/dL (1.8-2.4)
[2023-10-29 23:24] LABS: CREATININE 0.7 mg/dL (0.55-1.3)
[2023-10-29 23:26] LABS: BILIRUBIN,TOTAL 0.3 mg/dL (0.2-1)
[2023-10-30] MEDS ORDERED: ALBUTEROL SO4 HFA INHALER IH ONE (00:16)
[2023-10-30] MEDS: ALBUTEROL SO4 HFA INHALER IH ONE (00:17)
[2023-10-30 00:28] VITALS: BP 115/66; PULSE 85; RESP 20; TEMP 98.3
== END 2023-10-30 00:35 | disposition home or self-care (01) ==
LOC: JER 22:18
PROC: 3E023GC Introduction of Other Therapeutic Substance into Muscle, Percutaneous Approach (ICD-10-PCS; principal; 2023-10-29)
PROC: 3E0F7GC Introduction of Other Therapeutic Substance into Respiratory Tract, Via Natural or Artificial Opening (ICD-10-PCS; 2023-10-29)
DX: J45.901 Unspecified asthma with (acute) exacerbation (principal); R06.02 Shortness of breath
CPT/HCPCS: 0241U-QW; 36415; 71045-TC-FY; 80053; 83735; 85025; 99284-25; J1100

== ENCOUNTER 2023-11-04 15:27 | Emergency (ER) | payer OTHER ==
[2023-11-04 15:40] VITALS: TEMP 98.6; BMI 27.4
[2023-11-04] MEDS: ALBUTEROL SO4 2.5/IPRATROPIUM 0.5 INH SOL 3 ML VIAL.NEB. NEB ONE (15:41)
[2023-11-04] MEDS ORDERED: ALPRAZolam 0.25 MG TABLET PO PRN (16:51)
[2023-11-04] MEDS ORDERED: ALPRAZolam 0.25 MG TABLET ONE (17:02)
[2023-11-04] MEDS: ALPRAZolam 0.25 MG TABLET PO ONE (17:06)
[2023-11-04 18:27] VITALS: BP 117/86; PULSE 93; RESP 20
[2023-11-04] MEDS: ACETAMINOPHEN 500 MG TABLET (FP) PO ONE (18:45)
== END 2023-11-04 18:50 | disposition home or self-care (01) ==
LOC: JER 15:27
PROC: 3E0F7GC Introduction of Other Therapeutic Substance into Respiratory Tract, Via Natural or Artificial Opening (ICD-10-PCS; principal; 2023-11-04)
DX: J45.909 Unspecified asthma, uncomplicated (principal); R06.02 Shortness of breath; R05.9 Cough, unspecified
CPT/HCPCS: 71045-TC-FY; 93005; 93010; 99283-25

== ENCOUNTER 2024-05-26 09:13 | Emergency (ER) | payer OTHER ==
[2024-05-26 09:22] VITALS: BMI 27.8
[2024-05-26] MEDS ORDERED: ACETAMINOPHEN INJECTION 100 ML ONE (10:27)
[2024-05-26] MEDS ORDERED: ONDANSETRON 4 MG/2 ML VIAL ONE (10:27)
[2024-05-26] MEDS ORDERED: FAMOTIDINE 20 MG/50 ML IVPB 20 MG/50 ML MG IVPB ONE (10:27)
[2024-05-26] MEDS: SODIUM CHLORIDE 0.9% 500 ML INFUS.BAG IV ONE (10:48)
[2024-05-26] MEDS: FAMOTIDINE 20 MG/50 ML IVPB 20 MG/50 ML MG IVPB ONE (10:49)
[2024-05-26] MEDS: ONDANSETRON 4 MG/2 ML VIAL IVPUSH ONE (10:49)
[2024-05-26] MEDS: ACETAMINOPHEN 1000 MG/100 ML BAG IVPB ONE (10:49)
[2024-05-26 10:51] LABS: ABSOLUTE IMMATURE GRANULOCYTES 0.02 x10^3/uL (0.0-0.031); BASOPHILS # 0.01 x10^3/uL (0.01-0.08); HEMATOCRIT 42.8 % (34.1-44.9); HEMOGLOBIN 14.4 g/dL (11.2-15.7); MCHC 33.6 g/dl (32.2-35.5); MEAN CELL VOLUME 88.4 fl (79.4-94.8); MEAN PLT VOLUME 10.7 fl (9.4-12.3); MONOCYTE # 0.49 x10^3/uL (0.24-0.86); MONOCYTE % 5.3 % (4.7-12.5); PLATELET COUNT 184 x10^3/uL (182-369); RDW 12.3 % (12.1-16.5)
[2024-05-26 11:12] LABS: EPI CELLS >36 /uL (0-25.1); HYALINE CASTS 1 /uL (0-3.1); PH,URINE 5.5 (5.0-8.0); URINE APPEARANCE TURBID; URINE BACTERIA 840 /uL (0-1359); URINE BILIRUBIN NEGATIVE (NEGATIVE); URINE COLOR YELLOW; URINE GLUCOSE (UA) NEGATIVE (NEGATIVE); URINE KETONE 3+ (NEGATIVE); URINE LEUK ESTERASE 1+ (NEGATIVE); URINE NITRITE NEGATIVE (NEGATIVE); URINE PROTEIN 1+ (NEGATIVE); URINE RBC 20 /uL (0-23.9); URINE WBC 62 /uL (0-25.8)
[2024-05-26 11:35] LABS: POTASSIUM 3.7 mmol/L (3.5-5.1)
[2024-05-26 11:37] LABS: CALCIUM 9.3 mg/dL (8.5-10.1)
[2024-05-26 11:38] LABS: ALBUMIN 4.2 g/dl (3.4-5.0); BLOOD UREA NITROGEN 8.7 mg/dL (7-18)
[2024-05-26 11:40] LABS: CREATININE 0.6 mg/dL (0.55-1.3)
[2024-05-26 11:42] LABS: BILIRUBIN,TOTAL 0.6 mg/dL (0.2-1); TOT PROT 8.2 g/dl (6.4-8.2)
[2024-05-26 14:31] VITALS: BP 132/77; PULSE 87; RESP 16; TEMP 98.3
== END 2024-05-26 16:40 | disposition home or self-care (01) ==
LOC: JER 09:13
PROC: 3E033GC Introduction of Other Therapeutic Substance into Peripheral Vein, Percutaneous Approach (ICD-10-PCS; principal; 2024-05-26)
PROC: 3E033NZ Introduction of Analgesics, Hypnotics, Sedatives into Peripheral Vein, Percutaneous Approach (ICD-10-PCS; 2024-05-26)
PROC: 3E033GC Introduction of Other Therapeutic Substance into Peripheral Vein, Percutaneous Approach (ICD-10-PCS; 2024-05-26)
DX: K52.9 Noninfective gastroenteritis and colitis, unspecified (principal); N39.0 Urinary tract infection, site not specified; R51.9 Headache, unspecified; R10.12 Left upper quadrant pain; R10.32 Left lower quadrant pain; R42 Dizziness and giddiness; R11.0 Nausea
CPT/HCPCS: 0241U-QW; 36415; 70450-TC; 74177-TC; 80053; 81003; 83690; 84703; 85025; 87651; 99285-25; J0131